=== PATIENT | male | born 1990 | race Caucasian/White ===

== ENCOUNTER 2023-11-16 12:48 | Emergency (ER) | payer MEDICARE, MEDICAID, SELFPAY ==
[2023-11-16 12:54] VITALS: BP 137/87; PULSE 110; O2SAT 96
--- NOTE | 2023-11-16 12:54 | ED_ITS ---
HPI - General Adult General Chief complaint: Upper Respiratory Symptoms Stated complaint: WEAKNESS COVID + Time Seen by Provider: 11/16/23 12:53 Source: patient, family (patient's mother) and EMS Mode of arrival: EMS Limitations: no limitations History of Present Illness ED Provider: Sharon Flores PA-C HPI narrative: Patient is a 33 year old assigned male at with a history of cerebral palsy with quadriplegia, mild intellectual disability, and neuromuscular scoliosis of the thoracic region, presenting to the emergency department today with COVID-19 and poor oral intake. Patient's mother states that the patient has been feeling generally unwell the last few days and has markedly decreased PO intake. Patient's mother states that she tested him for COVID-19 at home and he was positive. Patient's mother states that she is also concerned that his urine is darker than usual. Patient denies any dizziness, lightheadedness, abdominal pain, nausea, vomiting, fever, chills, blurry vision, double vision, loss of vision, chest pain, difficulty breathing, shortness of breath, back pain, night sweats, syncope or a near syncopal episode, recent trauma or falls, bowel incontinence, bladder incontinence, or any other complaints at this time. Onset (ago): day(s) Relieving factors: none Exacerbating factors: none Treatments prior to arrival: none Related Data Allergies Allergy/AdvReac Type Severity Reaction Status Date / Time No Known Allergies Allergy Verified 11/16/23 12:59 [No Known Allergies*] Review of Systems 2 Constitutional: Constitutional: Reports no additional constitutional complaints, Denies chills, Denies fever(s), Denies night sweats and Reports poor appetite Eyes: Eyes: Reports no additional eye complaints, Denies blurry vision, Denies change in vision, Denies diplopia, Denies eye discharge, Denies loss of vision and Denies eye pain ENT: Denies dizziness Cardiovascular: Cardiovascular: Reports no additional cardiovascular complaints, Denies chest pain, Denies lightheadedness, Denies Loss of Consciousness and Denies dyspnea Respiratory: Respiratory: Reports no additional respiratory complaints and Denies dyspnea Gastrointestinal: Gastrointestinal: Reports no additional gastrointestinal complaints, Denies abdominal pain, Denies melena, Denies hematochezia, Denies change in bowel habits and Denies change in stool character Genitourinary: Genitourinary: Reports no additional male genitourinary complaints, Denies hematuria, Denies oliguria, Denies difficulty urinating, Denies dysuria, Denies urinary frequency, Denies urinary hesitancy, Denies urinary incontinence and Denies urinary urgency Musculoskeletal: Comments: history of quadriplegia Neurologic: Denies dizziness and Denies loss of vision Psychiatric: Psychiatric: Reports no additional psychiatric complaints Endocrine: Endocrine: Reports no additional endocrine complaints Hematologic/Lymphatic: Hematologic/Lymphatic: Reports no additional hematologic/lymphatic complaints Allergic/Immunologic: Allergic/Immunologic: Reports no additional allergic/immunologic complaints PMFSH Past Medical History Attestation statement: The following information was validated with the patient. (all information validated with the patient's mother) Source: old records reviewed, obtained from family (patient's mother provided additional history and confirmed the history provided by the patient) and nursing notes reviewed Social History Social History Advance Directives: No Advance Directives Information Provided: Yes Do you have a plan to hurt others: No Plan Physical Exam ED Vital Signs: Vital Signs - 24 hr 11/16/23 20:09 Temperature 98.7 F Pulse Rate 104 H Respiratory Rate 16 Blood Pressure 137/89 Pulse Oximetry 97 Oxygen Delivery Method Room Air BMI result Body Mass Index 23.2 Const General: cooperative, no acute distress, alert and awake Nutritional Appearance: well nourished Orientation/consciousness: patient oriented x3 Limitations: no limitations HENMT Head: Yes normal to inspection and Yes atraumatic Ears: hearing grossly normal bilaterally and external ears normal General nose exam: Normal external nose present, no nasal discharge noted and no epistaxis Face and sinus: Yes normal facial exam, No abrasion and No laceration Mouth: Normal oral and palatal mucosa present, no drooling and no muffled voice Eyes General: appearance normal, both eyes and all related structures Periorbital: periorbital findings normal Eyelids: Yes eyelids normal Conjunctivae: conjunctivae normal Pupils: Equal, round and reactive pupils present EOM: EOMs intact bilaterally Neck Neck: Yes normal visual inspection, Yes full ROM and Yes no lymphadenopathy Chest Chest palpation & inspection: normal inspection of the chest Resp Effort & Inspection: normal respiratory effort and able to speak in complete sentences GI Inspection: Yes normal to inspection Neuro General: patient oriented x3 Cranial nerves: Yes Equal, round and reactive pupils present Cognition (Neuro): normal cognition Extrem Other: upper extremity contractures - chronic for the patient quadriplegia - chronic for the patient Psych Appearance: grossly normal Mental Status: mental status grossly normal Affect: normal affect Attitude: cooperative Thought process: Normal thought process present Thought content: Normal thought content present Insight: Good insight present (Psych) Medications Administered Discontinued Medications Generic Name Dose Route Start Last Admin Trade Name Lesia PRN Reason Stop Dose Admin Sodium Chloride 1,000 mls @ 999 mls/hr 11/16/23 13:00 11/16/23 15:35 Ns IV 11/16/23 14:00 Infused .Q1H1M KEDAR Infusion Acetaminophen 1,000 mg in 100 mls @ 400 mls/hr 11/16/23 15:26 11/16/23 15:59 Ofirmev IV 11/16/23 15:40 Infused ONCE ONE Infusion Lactated Ringer's 1,000 mls @ 999 mls/hr 11/16/23 15:30 11/16/23 17:15 Lr IV 11/16/23 16:30 Infused .Q1H1M KEDAR Infusion Medical Decision Making Medical Decision Making MDM Narrative: Patient is a 33 year old assigned male at with a history of cerebral palsy with quadriplegia, mild intellectual disability, and neuromuscular scoliosis of the thoracic region, presenting to the emergency department today with COVID-19 and feeling generally unwell. Patient's physical exam was as noted in the physical exam portion of this note. Patient's blood work was unremarkable. I explained my physical exam findings as well as all test results to the patient and the patient's mother. I answered all questions asked by the patient and the patient's mother. Patient received IV fluids and Tylenol which he stated helped his symptoms significantly. Patient was able to tolerate PO while in the department. I stressed the importance of the patient taking his medication as directed (either prescribed or as the over the counter packaging recommends). I stressed the importance of the patient following up with his primary care provider. I stressed the importance of the patient returning to the emergency department immediately if his symptoms were to worsen or if he were to develop any dizziness, shortness of breath, difficulty breathing, chest pain, blurry vision, loss of vision, nausea, vomiting, abdominal pain, fever, chills, back pain, or any other complaints. Patient and the patient's mother verbalized agreement and understanding with this treatment plan and discharge. Differential Diagnosis Differential Diagnoses: The differential diagnosis associated with the presentation includes COVID-19 Admission/Observation Consideration of admission/observation: Escalation of care including admission/observation considered Patient would have been admitted to the hospital had his work up had any findings where hospital admission was appropriate and his clinical presentation warranted hospital admission. Lab Data [facility] Lab Attestation statement: I reviewed the patient's lab results. My interpretation of these results are in the [facility] Rationale portion of this note. 11/16/23 13:51 11/16/23 14:52 Labs: Lab Results 11/16/23 11/16/23 11/16/23 Range/Units 13:51 13:59 14:52 WBC 5.9 (4.8-10.8) X10*3/uL RBC 5.41 (4.60-5.80) X10*6/uL Hgb 16.0 (14.0-18.0) g/dl Hct 46.2 (42.0-52.0) % MCV 85.4 (80.0-98.0) fL MCH 29.6 (27.0-33.0) pg MCHC 34.6 (31.0-36.0) g/dl RDW 13.0 (11.0-16.0) % Plt Count 198 (160-400) X10*3/uL MPV 10.9 (9.4-12.4) fL Immature Gran % (Auto) 0.3 (0.0-0.4) % Neut % (Auto) 57.3 (45-73) % Lymph % (Auto) 16.0 L (20-40) % Bent % (Auto) 25.7 H (2-11) % Eos % (Auto) 0.0 (0-4) % Baso % (Auto) 0.7 (0-2) % Lymph # (Auto) 1.0 L (1.2-4.9) X10*3/uL Bent # (Auto) 1.5 H (0.1-1.2) X10*3/uL Eos # (Auto) 0.0 (0.0-0.4) X10*3/uL Baso # (Auto) 0.0 (0.0-0.2) X10*3/uL Abs Immat Gran (auto) 0.02 (0.00-0.03) X10*3/uL Absolute Neuts (auto) 3.4 (2.0-8.3) x10*3/uL Absolute Nucleated RBC 0.000 (0.0-0.012) X10*3/uL Nucleated RBC % (auto) 0.0 (0.0-0.2) /100WBC Smear Tech's Comments VERIFIED Sodium 142 (135-145) mmol/L Potassium 3.7 (3.3-5.1) mmol/L Chloride 107 (96-108) mmol/L Carbon Dioxide 24 (22-29) mmol/L Anion Gap 15 (12-20) BUN 15 (9-16) mg/dL Creatinine 0.67 (0.5-1.4) mg/dL Estim Creat Clear Calc 131.3 Estimated GFR > 60 Random Glucose 85 (60-115) mg/dL Calcium 9.1 (8.4-10.2) mg/dL Magnesium 2.1 (1.6-2.6) mg/dL Total Bilirubin 0.4 (0.0-1.0) mg/dL AST 20 (5-37) U/L ALT 18 (0-40) U/L Alkaline Phosphatase 87 (39-117) U/L Total Creatine Kinase 221 H (38-174) U/L Total Protein 7.3 (6.5-8.0) g/dL Albumin 4.1 (3.5-5.0) g/dL Influenza Type A (PCR) NEGATIVE (Negative) Influenza Type B (PCR) NEGATIVE (Negative) RSV RNA Qual (PCR) NEGATIVE (Negative) SARS-CoV-2 RNA (RT-PCR) POSITIVE A (Negative) Independent Historian Clinical information obtained from an independent historian. History obtained from or confirmed by: Parent (patient's mother provided additional history and confirmed the history provided by the patient.) and EMS (EMS provided additional history and confirmed the history provided by the patient) Tests considered The following testing was considered but not selected: I considered obtaining a chest x-ray however, the patient's current clinical presentation did not warrant this. I discussed this with the patient and the patient's mother who verbalized understanding and agreement. Discharge Plan Discharge Clinical Impression: COVID-19 Patient Disposition: Home, Self-Care Instructions: COVID-19 (Coronavirus Disease 2019) (ED) Additional Instructions: Follow up with your primary care provider. Return to the emergency department immediately if your symptoms worsen or if you develop any dizziness, shortness of breath, difficulty breathing, chest pain, blurry vision, loss of vision, nausea, vomiting, abdominal pain, fever, chills, back pain, or any other complaints. Referrals: Rebecca Magaña MD [Primary Care Provider] - Interventions: ED Discharge Assessment Last Done: 11/16/23 20:09 Discharge Date/Time: 11/16/23 20:10 Print Language: Arabic
[2023-11-16 12:58] VITALS: BP 137/87; PULSE 110; RESP 22; TEMP -17.7; TEMP 0; O2SAT 96; BMI 23.2
[2023-11-16] MEDS: 0.9 % Sodium Chloride 1,000 ML 999 ML IV (13:56)
[2023-11-16 13:57] LABS: Basophils Percent Auto 0.7 % (0-2); Hematocrit 46.2 % (42.0-52.0); Imm Gran Abs Auto 0.02 X10*3/uL (0.00-0.03); Imm Gran Pct Auto 0.3 % (0.0-0.4); MANUAL DIFF FLAG SCAN; Mean Corpuscular HGB Conc 34.6 g/dl (31.0-36.0); Mean Corpuscular Hemoglobin 29.6 pg (27.0-33.0); Mean Corpuscular Volume 85.4 fL (80.0-98.0); Mean Platelet Volume 10.9 fL (9.4-12.4); Monocytes Absolute Auto 1.5 X10*3/uL (0.1-1.2); Monocytes Percent Auto 25.7 % (2-11); Neutrophils Absolute Auto 3.4 x10*3/uL (2.0-8.3); Neutrophils Percent Auto 57.3 % (45-73); Platelet Count 198 X10*3/uL (160-400); Red Blood Count 5.41 X10*6/uL (4.60-5.80); SCAN SMEAR FLAG 1; White Blood Count 5.9 X10*3/uL (4.8-10.8)
[2023-11-16 14:17] LABS: SLIDE REVIEW VERIFIED
[2023-11-16 14:41] LABS: Influenza A PCR NEGATIVE (Negative); Influenza B PCR NEGATIVE (Negative); Resp Syncy Virus RNA Qual PCR NEGATIVE (Negative); SARS COV2 PCR INHOUSE POSITIVE (Negative)
[2023-11-16 14:43] VITALS: TEMP 37.9
[2023-11-16 15:18] LABS: Alanine Aminotransferase 18 U/L (0-40); Albumin Level 4.1 g/dL (3.5-5.0); Alkaline Phosphatase 87 U/L (39-117); Anion Gap 15 (12-20); Aspartate Amino Transferase 20 U/L (5-37); Bilirubin Total 0.4 mg/dL (0.0-1.0); Blood Urea Nitrogen 15 mg/dL (9-16); Calcium 9.1 mg/dL (8.4-10.2); Carbon Dioxide 24 mmol/L (22-29); Chloride 107 mmol/L (96-108); Creatinine Clr Calc Pharmacy 131.3; Estimated Glomerular Filt Rate > 60; Glucose Random 85 mg/dL (60-115); Magnesium 2.1 mg/dL (1.6-2.6); Potassium 3.7 mmol/L (3.3-5.1); Sodium 142 mmol/L (135-145); Total Protein 7.3 g/dL (6.5-8.0)
[2023-11-16] MEDS: Acetaminophen 1,000 MG/100 ML PIGGYBACK 400 MG IV (15:35)
[2023-11-16] MEDS: Lactated Ringers 1,000 ML 999 ML IV (15:59)
[2023-11-16 20:09] VITALS: BP 137/89; PULSE 104; RESP 16; TEMP 37.1; O2SAT 97
== END 2023-11-16 20:10 | disposition home or self-care (01) ==
PROVIDERS: Physician Assistant Medical; Emergency Provider Emergency Medicine; PCP Internal Medicine
DX: U07.1 COVID-19 (principal)
CPT/HCPCS: 0241U; 80053; 82550; 83735; 85025; 96360; 96361; 99284; J0131; J7120

== ENCOUNTER 2025-02-18 18:56 | Emergency (ER) | payer MEDICARE, MEDICAID, SELFPAY ==
--- NOTE | ~2025-02-18 | XR_ITS ---
CLINICAL HISTORY: fever PNA? PT WAS CONTRACTED AND SEMI-UPRIGHT. ARTIFACT APPEARED IN FIRST IMAGE, REPEAT TAKEN BUT STILL SAME RESULT Chest X-ray, 1 View COMPARISON: None provided FINDINGS: Left lower lung consolidation. Low lung volumes. No pleural effusion. No pneumothorax. No cardiomegaly. No acute fracture. Scoliosis. IMPRESSION: Lower lung consolidation, which could be due to pneumonia. This document has been electronically signed by: Ramy Alvarez MD on 02/18/2025 21:24:57
[2025-02-18 19:17] VITALS: BP 139/93; BP 157/98; PULSE 106; PULSE 110; RESP 20; TEMP 37.7; O2SAT 96; O2SAT 97; BMI 27.0
[2025-02-18 20:10] LABS: MANUAL DIFF FLAG NO
[2025-02-18 20:14] LABS: Hematocrit 47.1 % (42.0-52.0); Hemoglobin 15.9 g/dl (14.0-18.0); Imm Gran Abs Auto 0.01 X10*3/uL (0.00-0.03); Imm Gran Pct Auto 0.1 % (0.0-0.4); Lymphocytes Absolute Auto 2.4 X10*3/uL (1.2-4.9); Mean Corpuscular HGB Conc 33.8 g/dl (31.0-36.0); Mean Corpuscular Hemoglobin 29.1 pg (27.0-33.0); Mean Corpuscular Volume 86.1 fL (80.0-98.0); NRBC Abs Auto 0.000 X10*3/uL (0.0-0.012); NRBC Pct Auto 0.0 /100WBC (0.0-0.2); Platelet Count 221 X10*3/uL (160-400); Red Blood Count 5.47 X10*6/uL (4.60-5.80); White Blood Count 9.0 X10*3/uL (4.8-10.8)
--- OUTSIDE RECORDS SUMMARY | 2025-02-18 20:14 | XMS_ITS | Encounter Summary ---
Author Organization [facility] Address [address] [place] [phone] Phone Care Team Providers Care Metal Trim Erector Name Role Phone Deven Arroyo MD Primary Care Provider Chandni dukes Encounter Details Date Type Department Care Team (Late st Contact Info) Description 09/05/2013 Conversion Encounter [facility] - [address] [address] Deven Arroyo MD Social History Tobacco Use Types Packs/Day Years Used Date Smoking Tobacco: Never Assessed Sex and Gender Information Value Date Recorded Sex Assigned at Not on file Legal Sex Male 4:46 PM EDT Gender Identity Not on file Sexual Orientation Not on file documented as of this encounter Plan of Treatment Not on file documented as of this encounter Visit Diagnoses Not on filedocumented in this encounter Care Teams Metal Trim Erector Relationship Specialty Start Date End Date Deven Arroyo MD PCP - General 11/03/16 09/14/22 documented as of this encounter
--- OUTSIDE RECORDS SUMMARY | 2025-02-18 20:14 | XMS_ITS | Encounter Summary ---
Author Organization [facility] Address [address] [place] [address] Phone Care Team Providers Care Cloth Laminating Supervisor Name Role Phone Deven Arroyo MD Primary Care Provider Chandni dukes Encounter Details Date Type Department Care Team (Late st Contact Info) Description 08/03/2009 Documentation [facility] [address] [place] [address] Family Medicine, Physician [address] [place], [place] [phone] Social History Tobacco Use Types Packs/Day Years [...] on filedocumented in this encounter Care Teams Cloth Laminating Supervisor Relationship Specialty Start Date End Date Deven Arroyo MD PCP - General 11/03/16 09/14/22 documented as of this encounter
--- OUTSIDE RECORDS SUMMARY | 2025-02-18 20:14 | XMS_ITS | Encounter Summary ---
Author Organization [facility] Address [address] [place] [address] Phone Care Team Providers Care Corrosion Control Specialist Name Role Phone Deven Arroyo MD Primary Care Provider Chandni dukes Encounter Details Date Type Department Care Team (Late st Contact Info) Description 11/09/2016 Conversion Encounter [facility] - [address] [address] Social History Tobacco Use Types Packs/Day Years [...] on filedocumented in this encounter Care Teams Corrosion Control Specialist Relationship Specialty Start Date End Date Deven Arroyo MD PCP - General 11/03/16 09/14/22 documented as of this encounter
--- OUTSIDE RECORDS SUMMARY | 2025-02-18 20:14 | XMS_ITS | Encounter Summary ---
Author Organization [facility] Address [address] [place] [address] Phone Care Team Providers Care Medical Care Administrator Name Role Phone Deven Arroyo MD Primary Care Provider Chandni dukes Encounter Details Date Type Department Care Team (Late st Contact Info) Description 06/05/2010 Documentation [facility] [address] [place] [address] Family Medicine, Physician [address] [place], [place] [phone] Social History Tobacco Use Types Packs/Day Years [...] on filedocumented in this encounter Care Teams Medical Care Administrator Relationship Specialty Start Date End Date Deven Arroyo MD PCP - General 11/03/16 09/14/22 documented as of this encounter
--- OUTSIDE RECORDS SUMMARY | 2025-02-18 20:14 | XMS_ITS | Encounter Summary ---
Author Organization [facility] Address [address] [place] [address] Phone Care Team Providers Care Library Supervisor Name Role Phone Deven Arroyo MD Primary Care Provider Chandni dukes Encounter Details Date Type Department Care Team (Late st Contact Info) Description 07/21/2009 Documentation [facility] [address] [place] [address] Family Medicine, Physician [address] [place], [place] [address] Social History Tobacco Use Types Packs/Day Years [...] on filedocumented in this encounter Care Teams Library Supervisor Relationship Specialty Start Date End Date Deven Arroyo MD PCP - General 11/03/16 09/14/22 documented as of this encounter
--- OUTSIDE RECORDS SUMMARY | 2025-02-18 20:14 | XMS_ITS | Clinical Summary ---
Author Organization [facility] Address [address] [place] [phone] Phone Care Team Providers Care Auto Mechanics Teacher Name Role Phone Unavailable Primary Care Provider Unavailabl e Immunizations Immunization Administration Dates Next Due DT 11/29/1995, 3,06/16/1991,04/17 DTP 1990 H1N1 07/30/2009 Hep B, ped/adol 01/10/2005,11/25/2003,09/24/2003 Hib (PRP-T) 10/06/1992,07/27/1992 IPV 11/29/1995,01/28/1993,11/11/1991 Influenza Split 12/25/2011,11/17/2010,12/27/2009 Influenza, injectable, trivalent 009,01/03/2008,12/13/2006,02/02,01/10/2005 MMR 11/29/1995,12/15/1991 Meningococcal Conj (Menactra) MCV4P 09/11/2006 OPV 1990 Td (adult) (MBL), 2 Lf tetan us toxoid, PF, adsorbed 04/01/2002 Tdap 10/08/2007 Varicella 10/08/2007,07/16/2000 Family History Relation Name Status Comments Father Father: Hyperte nsion, Elevated cholesterol Other Family history of Asthma, Family history of Diabetes mellitus, Family history of Obesity, Family history of Strabismus/amblyopia Social History Tobacco Use Types Packs/Day Years Used Date Smoking Tobacco: Never Assessed Sex and Gender Information Value Date Recorded Sex Assigned at Not on file Legal Sex Male 4:46 PM EDT Gender Identity Not on file Sexual Orientation Not on file Last Filed Vital Signs Vital Sign Reading Time Taken Comments Blood Pressure 120/90 08/08/2012 12:00 AM EDT Pulse 90 03/04/2010 12:00 AM EST Temperature 36.4 C (97.6 F) 08/08/2012 12:00 AM EDT Respiratory Rate - - Oxygen Saturation - - Inhaled Oxygen Concentration - - Weight 59 kg (130 lb) 08/08/2012 12:00 AM EDT Height - - Body Mass Index - - Plan of Treatment Health Maintenance Due Date Last Done Comments HPV Vaccines (1 - 3-dose SCDM series) 2017 DTaP,Tdap,and Td Vaccines (4 - Td or Tdap) 10/07/2017 10/08/2007, 04/01/2002, 11/29/1995, Additional history exists Influenza Vaccines (#1) 2024 12/25/19, 11/17/2010, 12/27/2009, Additional history exists COVID-19 Vaccine (2024- season) 2024 HIB Vaccines Completed 10/06/1992, 07/27/1992 IPV Vaccines Completed 11/29/1995, 07/1992, 11/11/1991, Additional history exists MMR Vaccines Completed 11/29/1995, 12/15/1991 Hepatitis B Vaccines Completed 01/10/2005, 11/25/2003, 09/24/2003 Meningococcal Vaccine Completed 09/11/2006 Varicella Vaccines Completed 10/08/2007, 07/16/2000 Hepatitis A Vaccines Aged Out No long er eligible based on patient's age to complete this topic Men B Vaccine Aged Out No longer elig ible based on patient's age to complete this topic Pneumococcal Vaccine Aged Out No long er eligible based on patient's age to complete this topic
--- OUTSIDE RECORDS SUMMARY | 2025-02-18 20:14 | XMS_ITS | Clinical Summary ---
Author Organization [facility] Address [address] [place] [phone] Phone Care Team Providers Care Gas Specialist Name Role Phone Rebecca Magaña MD Primary Care Provide r Social History Tobacco Use Types Packs/Day Years Used Date Smoking Tobacco: Never Assessed Education Answer Date Recorded Are you interested in more education? Not on alondra e 07/21/2022 Are you concerned about learning? Not on file 07/21/2022 No 07/21/2022 No 07/21/2022 Digital Access Answer Date Recorded No 08/18/2022 No 08/18/2022 No 08/18/2022 Reliable internet access at home? Not on file 08/18/2022 Device with a working camera? Not on file Sex and Gender Information Value Date Recorded Sex Assigned at Not on file Legal Sex Male 9:02 PM EDT Gender Identity Not on file Sexual Orientation Not on file Plan of Treatment Health Maintenance Due Date Last Done Comments DEPRESSION SCREENING 2002 SMOKING Hx and SMOKELESS TOBACCO SCREENING 08/10/2003 HEPATITIS C SCREENING 2008 HIV ONE-TIME SCREENING (18-65 YEARS) 2008 Adult Td,Tdap Booster 10/07/2017 10/08/2007, 003 INFLUENZA VACCINE (#1) 2024 7, 12/25/2011, 11/17/2010, Additional history exists COVID-19 VACCINE ( season) 2024 HIB VACCINES Completed 10/06/1992, 07/27/1992 MENINGOCOCCAL VACCINES (ACWY) Completed 09/11/2006 HEPATITIS A VACCINES Aged Out No long er eligible based on patient's age to complete this topic MENINGOCOCCAL VACCINES (B) Aged Out N o longer eligible based on patient's age to complete this topic PNEUMOCOCCAL VACCINES (0-49 years) Aged Out No longer eligible based on patient's age to complete this topic Medical Devices Not on file Insurance [place] [facility] Member Subscriber Plan / Payer (Ef fective 2020-Present) Name:Emigdio Avila Member ID:[id number] Relation to Subscriber:Self Name:Emigdio Avila Subscriber ID:[id number] Payer ID:[id number] Group ID:Not on file Type:Medicare Address: Help/Systems [facility] [id number] [place] [id number] MEDICARE PART A & B [facility] [place] [id number] MEDICARE PART A & B [facility] [place] [id number] MEDICARE PART A & B Care Teams Gas Specialist Relationship Specialty Start Date End Date Rebecca Magaña MD [address] [place] [address] PCP - General Internal Medicine 07/20/20 Additional Source Comments The information contained in this document represents components of the legal health record. It is not the complete legal health record.[facility]
--- OUTSIDE RECORDS SUMMARY | 2025-02-18 20:14 | XMS_ITS | Encounter Summary ---
Author Organization [facility] Address [address] [place] [address] Phone Care Team Providers Care Heat And Frost Insulator Helper Name Role Phone Deven Arroyo MD Primary Care Provider Chandni dukes Encounter Details Date Type Department Care Team (Late st Contact Info) Description 08/11/2010 Documentation [facility] [address] [place] [address] Family Medicine, Physician [address] [place], [place] [phone] Social History Tobacco Use Types Packs/Day Years [...] on filedocumented in this encounter Care Teams Heat And Frost Insulator Helper Relationship Specialty Start Date End Date Deven Arroyo MD PCP - General 11/03/16 09/14/22 documented as of this encounter
[2025-02-18 20:24] LABS: Alanine Aminotransferase 30 U/L (0-40); Albumin Level 4.9 g/dL (3.5-5.0); Alkaline Phosphatase 106 U/L (39-117); Anion Gap 12 (12-20); Aspartate Amino Transferase 22 U/L (5-37); Blood Urea Nitrogen 15 mg/dL (9-16); Calcium 9.7 mg/dL (8.4-10.2); Carbon Dioxide 25 mmol/L (22-29); Chloride 105 mmol/L (96-108); Creatinine Clr Calc Pharmacy 156.9; Estimated Glomerular Filt Rate > 60; Magnesium 2.1 mg/dL (1.6-2.6); Potassium 4.0 mmol/L (3.3-5.1); Sodium 138 mmol/L (135-145); Total Protein 8.0 g/dL (6.5-8.0)
[2025-02-18 20:28] LABS: Resp Syncy Virus RNA Qual PCR NEGATIVE (Negative); SARS COV2 PCR INHOUSE NEGATIVE (Negative)
[2025-02-18] MEDS: Lactated Ringers 1,000 ML 999 ML IV (20:49)
[2025-02-18 21:59] VITALS: BP 127/85; PULSE 96; RESP 16; O2SAT 98
[2025-02-18 22:16] LABS: Appearance Urine Turbid; Glucose Urine UA Negative (Negative); PH 7.5 (5.0-9.0); Specific Gravity - Urine 1.020 (1.005-1.025); UMIC TRIGGER UACC YES
[2025-02-18 22:37] LABS: UACC Culture Trigger YES
--- NOTE | 2025-02-18 23:50 | ED_ITS ---
HPI - General Adult General Chief complaint: General Medical Stated complaint: MUSCLE SPASMS Time Seen by Provider: 02/18/25 20:11 Source: family Limitations: other (Physical and cognitive impairment) History of Present Illness ED Provider: Venus Sharif PA-C HPI narrative: 34-year-old male with a history of cerebral palsy with quadriplegia, mild intellectual disability, and neuromuscular scoliosis of the thoracic region, who presents with poor oral intake. Patient is here with the his mom, he has not been eating. She is worried he may be sick. No active nausea vomiting or diarrhea. The patient has no physical concerns or complaints at this time. He refused to take his medication today. Related Data Previous Rx's ?Medication ?Instructions ?Recorded amoxicillin 875 mg-potassium 1 tab PO Q12H #19 tabs clavulanate 125 mg tablet azithromycin 250 mg tablet 250 mg PO DAILY 4 days #4 t abs 02/19/25 Allergies Allergy/AdvReac Type Severity Reaction Status Date / Time No Known Allergies (No Known Allergy Verified 02/18/25 19:23 Allergies*) Review of Systems 2 Review of Systems: Yes all other systems are reviewed and are negative Constitutional: Constitutional: Denies fatigue, Denies fever(s) and Reports poor appetite Cardiovascular: Cardiovascular: Denies chest pain and Denies dyspnea Respiratory: Respiratory: Denies cough and Denies dyspnea Gastrointestinal: Gastrointestinal: Denies abdominal pain, Denies constipation, Denies diarrhea, Denies nausea and Denies vomiting Genitourinary: Genitourinary: Denies dysuria Endocrine: Endocrine: Denies fatigue [facility] Past Medical History Attestation statement: The following information was validated with the patient. Social History Social History Alcohol intake: never Physical Exam ED Vital Signs: Vital Signs - 24 hr 02/18/25 19:17 02/18/25 21:59 02/19/25 01:04 Temperature 99.9 F Pulse Rate 106 H 96 105 H Respiratory Rate 20 16 15 Blood Pressure 139/93 H 127/85 124/87 Pulse Oximetry 96 98 95 Oxygen Delivery Method Room Air Room Air Room Air 02/19/25 01:11 Temperature 97.9 F Pulse Rate 105 H Respiratory Rate 15 Blood Pressure 124/87 Pulse Oximetry 95 Oxygen Delivery Method Room Air BMI result Body Mass Index 27.0 Const Other: Alert Orientation/consciousness: oriented to person Resp Effort & Inspection: normal respiratory effort Cardio Other: Normal peripheral perfusion Skin Other: Warm dry no rash Neuro Other: Contracted at baseline General: oriented to person and CN's II-XI intact bilaterally Psych Other: Cooperative Medications Administered Discontinued Medications Generic Name Dose Route Start Last Admin Trade Name Lesia PRN Reason Stop Dose Admin Lactated Ringer's 1,000 mls @ 999 mls/hr 02/18/25 20:15 02/18/25 21:50 Lr IV 02/18/25 21:15 Infused .Q1H1M KEDAR Infusion Ceftriaxone Sodium 2 gm/ 50 mls @ 100 mls/hr 02/18/25 22:14 02/18/25 22:52 Sodium Chloride IV 02/18/25 22:43 Infused ONCE ONE Infusion Azithromycin 500 mg/ Sodium 250 mls @ 125 mls/hr 02/18/25 22:14 02/19/25 01:03 Chloride IV 02/19/25 00:13 Infused ONCE ONE Infusion Ondansetron HCl 4 mg 02/19/25 00:19 02/19/25 00:36 Ondansetron Hcl 4 Mg/2 Ml Vial IVPUSH 02/19/25 00:20 4 mg ONCE ONE Administration Medical Decision Making Medical Decision Making [facility] Narrative: 34-year-old male with a history of cerebral palsy with quadriplegia, mild intellectual disability, and neuromuscular scoliosis of the thoracic region, who presents with poor oral intake. Patient is here with the his mom, he has not been eating. She is worried he may be sick. No active nausea vomiting or diarrhea. The patient has no physical concerns or complaints at this time. He refused to take his medication today. Problem: Bed-bound, CP, intellectual disability History: Per patient's mom I have considered the following differential diagnoses: Sepsis, UTI, pneumonia, viral syndrome, acute intra-abdominal pathology Plan: Patient not having any active GI symptoms, I do not feel he needs a CT scan of the abdomen and pelvis. Rectal temp was checked, he is afebrile, 99.9. We will collect blood cultures and a lactic, he may be developing a fever. Screening labs in process, adding on a chest x-ray viral panel and urinalysis. His symptoms are very nonspecific at this time. He does not meet sepsis criteria I want to be clear about this. I have independently reviewed the following tests: Labs: No leukocytosis, not anemic, no electrolyte abnormality, lactic 1.6, urine infected, viral panel negative Chest x-ray: FINDINGS: Left lower lung consolidation. Low lung volumes. No pleural effusion. No pneumothorax. No cardiomegaly. No acute fracture. Scoliosis. IMPRESSION: Lower lung consolidation, which could be due to pneumonia. Treating with ceftriaxone and azithromycin IV. We will transition to Augmentin and azithromycin at the time of discharge, this will also cover his urinary tract infection Differential Diagnosis Differential Diagnoses: The differential diagnosis associated with the presentation includes See [facility] Admission/Observation Consideration of admission/observation: Escalation of care including admission/observation considered Not applicable Lab Data [facility] Lab Attestation statement: I reviewed the patient's lab results. 02/18/25 20:06 02/18/25 20:06 Labs: Lab Results 02/18/25 02/18/25 02/18/25 Range/Units 19:44 20:06 20:54 WBC 9.0 (4.8-10.8) X10*3/uL RBC 5.47 (4.60-5.80) X10*6/uL Hgb 15.9 (14.0-18.0) g/dl Hct 47.1 (42.0-52.0) % MCV 86.1 (80.0-98.0) fL MCH 29.1 (27.0-33.0) pg MCHC 33.8 (31.0-36.0) g/dl RDW 13.2 (11.0-16.0) % Plt Count 221 (160-400) X10*3/uL MPV 10.7 (9.4-12.4) fL Immature Gran % (Auto) 0.1 (0.0-0.4) % Neut % (Auto) 60.7 (45-73) % Lymph % (Auto) 26.5 (20-40) % [place] % (Auto) 8.4 (2-11) % Eos % (Auto) 3.3 (0-4) % Baso % (Auto) 1.0 (0-2) % Lymph # (Auto) 2.4 (1.2-4.9) X10*3/uL [place] # (Auto) 0.8 (0.1-1.2) X10*3/uL Eos # (Auto) 0.3 (0.0-0.4) X10*3/uL Baso # (Auto) 0.1 (0.0-0.2) X10*3/uL Abs Immat Gran (auto) 0.01 (0.00-0.03) X10*3/uL Absolute Neuts (auto) 5.4 (2.0-8.3) x10*3/uL Absolute Nucleated RBC 0.000 (0.0-0.012) X10*3/uL Nucleated RBC % (auto) 0.0 (0.0-0.2) /100WBC Sodium 138 (135-145) mmol/L Potassium 4.0 (3.3-5.1) mmol/L Chloride 105 (96-108) mmol/L Carbon Dioxide 25 (22-29) mmol/L Anion Gap 12 (12-20) BUN 15 (9-16) mg/dL Creatinine 0.58 (0.5-1.4) mg/dL Estim Creat Clear Calc 156.9 Estimated GFR > 60 Random Glucose 97 (60-115) mg/dL Lactic Acid 1.6 (0.5-2.0) mmol/L Calcium 9.7 D (8.4-10.2) mg/dL Magnesium 2.1 (1.6-2.6) mg/dL Total Bilirubin 0.4 (0.0-1.0) mg/dL Direct Bilirubin 0.2 (0.0-0.5) mg/dL AST 22 (5-37) U/L ALT 30 (0-40) U/L Alkaline Phosphatase 106 (39-117) U/L Total Creatine Kinase 79 (38-174) U/L Total Protein 8.0 (6.5-8.0) g/dL Albumin 4.9 (3.5-5.0) g/dL Urine Color Urine Appearance Urine pH (5.0-9.0) Ur Specific [place] (1.005-1.025) Urine Protein (Neg-Trace) mg/dL Urine Glucose (UA) (Negative) mg/dL Urine Ketones (Negative) mg/dL Urine Blood (Negative) Urine Nitrite (Negative) Ur Leukocyte Esterase (Negative) Urine RBC (0-2) /HPF Urine WBC (0-5) /HPF Ur Squamous Epith Cells (0-2) /HPF Urine Bacteria (None Seen) Hyaline Casts (0-2) /LPF Influenza Type A (PCR) NEGATIVE (Negative) Influenza Type B (PCR) NEGATIVE (Negative) RSV RNA Qual (PCR) NEGATIVE (Negative) SARS-CoV-2 RNA (RT-PCR) NEGATIVE (Negative) 02/18/25 Range/Units 22:03 WBC (4.8-10.8) X10*3/uL RBC (4.60-5.80) X10*6/uL Hgb (14.0-18.0) g/dl Hct (42.0-52.0) % MCV (80.0-98.0) fL MCH (27.0-33.0) pg MCHC (31.0-36.0) g/dl RDW (11.0-16.0) % Plt Count (160-400) X10*3/uL MPV (9.4-12.4) fL Immature Gran % (Auto) (0.0-0.4) % Neut % (Auto) (45-73) % Lymph % (Auto) (20-40) % [place] % (Auto) (2-11) % Eos % (Auto) (0-4) % Baso % (Auto) (0-2) % Lymph # (Auto) (1.2-4.9) X10*3/uL [place] # (Auto) (0.1-1.2) X10*3/uL Eos # (Auto) (0.0-0.4) X10*3/uL Baso # (Auto) (0.0-0.2) X10*3/uL Abs Immat Gran (auto) (0.00-0.03) X10*3/uL Absolute Neuts (auto) (2.0-8.3) x10*3/uL Absolute Nucleated RBC (0.0-0.012) X10*3/uL Nucleated RBC % (auto) (0.0-0.2) /100WBC Sodium (135-145) mmol/L Potassium (3.3-5.1) mmol/L Chloride (96-108) mmol/L Carbon Dioxide (22-29) mmol/L Anion Gap (12-20) BUN (9-16) mg/dL Creatinine (0.5-1.4) mg/dL Estim Creat Clear Calc Estimated GFR Random Glucose (60-115) mg/dL Lactic Acid (0.5-2.0) mmol/L Calcium (8.4-10.2) mg/dL Magnesium (1.6-2.6) mg/dL Total Bilirubin (0.0-1.0) mg/dL Direct Bilirubin (0.0-0.5) mg/dL AST (5-37) U/L ALT (0-40) U/L Alkaline Phosphatase (39-117) U/L Total Creatine Kinase (38-174) U/L Total Protein (6.5-8.0) g/dL Albumin (3.5-5.0) g/dL Urine Color Yellow Urine Appearance Turbid Urine pH 7.5 (5.0-9.0) Ur Specific [place] 1.020 (1.005-1.025) Urine Protein Trace (Neg-Trace) mg/dL Urine Glucose (UA) Negative (Negative) mg/dL Urine Ketones 15 (Negative) mg/dL Urine Blood Negative (Negative) Urine Nitrite Positive H (Negative) Ur Leukocyte Esterase Moderate (2+) H (Negative) Urine RBC 0-2 (0-2) /HPF Urine WBC >50 H (0-5) /HPF Ur Squamous Epith Cells 0-2 (0-2) /HPF Urine Bacteria 4+ (None Seen) Hyaline Casts 3-5 (0-2) /LPF Influenza Type A (PCR) (Negative) Influenza Type B (PCR) (Negative) RSV RNA Qual (PCR) (Negative) SARS-CoV-2 RNA (RT-PCR) (Negative) Radiology Impression Discussion of test interpretation with radiology: I have reviewed the radiologist's reading. Discharge Plan Discharge Clinical Impression: Pneumonia Qualifiers: Pneumonia type: due to unspecified organism Laterality: left Lung location: l ower lobe of lung Qualified Code(s): J18.9 - Pneumonia, unspecified organism Urinary tract infection Qualifiers: Urinary tract infection type: acute cystitis Hematuria presence: without hematuria Qualified Code(s): N30.00 - Acute cystitis without hematuria Patient Disposition: Home, Self-Care Instructions: Urinary Tract Infection in Men (ED), Community Acquired Pneumonia (ED) Additional Instructions: You were found to have pneumonia and a urinary tract infection. See home care instructions. Take the Augmentin as directed, this will treat the pneumonia and the urinary tract infection. Take the azithromycin as directed this is part of the treatment for pneumonia. You should follow up with your primary care provider within a week for a reassessment. Prescriptions: New azithromycin 250 mg tablet 250 mg PO DAILY 4 Days Qty: 4 0RF Rx Instructions: start on day 2 of therapy amoxicillin-pot clavulanate 875-125 mg tablet 1 tab PO Q12H Qty: 19 0RF Interventions: ED Discharge Assessment Last Done: 02/19/25 01:11 Discharge Date/Time: 02/19/25 01:15 Print Language: Welsh
[2025-02-19 01:04] VITALS: BP 124/87; PULSE 105; RESP 15; O2SAT 95
--- NOTE | 2025-02-19 01:04 | PC.NURSE ---
Pt tolerated PO apple juice. Mother at bedside.
[2025-02-19 01:11] VITALS: BP 124/87; PULSE 105; RESP 15; TEMP 36.6; O2SAT 95
== END 2025-02-19 01:15 | disposition home or self-care (01) ==
PROVIDERS: Physician Assistant; Physician Assistant Medical; Emergency Provider Student in an Organized Health Care Education/Training Program; PCP Internal Medicine
DX: J18.9 Pneumonia, unspecified organism (principal); N30.00 Acute cystitis without hematuria; G80.8 Other cerebral palsy; M41.44 Neuromuscular scoliosis, thoracic region
CPT/HCPCS: 36415; 71045; 80048; 80076; 81001; 82550; 83605; 83735; 85025; 87040; 87086; 87147; 87205; 87637; J0456; J0696; J2405; J7120

== ENCOUNTER → 2025-02-18 20:15 | Outpatient (BNV) | payer MEDICARE, MEDICAID, SELFPAY | PROVIDERS: Emergency Provider Student in an Organized Health Care Education/Training Program; PCP Internal Medicine; Visit Provider Radiology Diagnostic Radiology | DX: R91.8 Other nonspecific abnormal finding of lung field (principal) | CPT/HCPCS: 71045 ==

== ENCOUNTER 2025-02-19 18:17 | Inpatient (IN) | payer MEDICARE, MEDICAID, SELFPAY ==
--- NOTE | ~2025-02-19 | CT_ITS ---
CLINICAL HISTORY: PT with Cereb Palsy refusing food CT abdomen and pelvis with contrast Comparison: None provided Findings: LIMITED CHEST: See separate CT chest. LIVER: No focal liver lesion. BILIARY: No gallbladder wall thickening, radiopaque stone, or ductal dilatation. PANCREAS: No mass or ductal dilatation. Questionable peripancreatic strandy changes around the head. SPLEEN: No splenomegaly. KIDNEYS: No hydronephrosis or radiopaque stone. Small hypoattenuating lesions, too small to characterize however may represent cysts. ADRENALS: No nodule. VASCULAR: No aneurysm. RETROPERITONEUM: No lymphadenopathy or mass. BOWEL/MESENTERY: No evidence of obstruction. No free fluid or air. Large stool in the rectal vault. Normal appendix. ABDOMINAL WALL: No mass or significant abnormality. URINARY BLADDER: No focal wall thickening. PELVIC NODES: No pelvic lymphadenopathy. PELVIC ORGANS: Normal for age. BONES: No acute fracture. Thoracolumbar scoliosis. OTHER: Negative. IMPRESSION: Questionable strandy changes around the pancreatic head, correlate with lipase. Otherwise, no acute abnormality in the abdomen or pelvis. Normal appendix. Large amount of stool in the rectal vault. This document has been electronically signed by: Lety Kumar MD on 02/20/2025 00:10:03
--- NOTE | ~2025-02-19 | CT_ITS ---
CLINICAL HISTORY: shortness of breath CT angiography chest with contrast. 3D Postprocessing. Comparison: None provided Findings: NECK BASE: Limited views of the thyroid are unremarkable. LUNGS/PLEURA: No focal consolidation. PULM VASCULAR: No pulmonary embolism. MEDIASTINUM: No masses or lymphadenopathy. CARDIAC: No pericardial effusion. No cardiomegaly. AORTA: No aneurysm. CHEST WALL: No masses or axillary lymphadenopathy. LIMITED ABDOMEN: Limited views are unremarkable. BONES: No acute fracture. Thoracolumbar scoliosis. IMPRESSION: 1. No pulmonary emboli. This document has been electronically signed by: Lety Kumar MD on 02/19/2025 23:51:34
--- NOTE | ~2025-02-19 | XR_ITS ---
CLINICAL HISTORY: Question of pneumonia 1 view chest x-ray Comparison: CR - XR CHEST 1V - 02/18/25 20:23 EST Findings: No consolidation or effusion. Low lung volume. Heart size is normal. No acute fracture. IMPRESSION: 1. Low lung volume, otherwise unremarkable. This document has been electronically signed by: Colleen Martin MD on 02/19/2025 19:41:46
[2025-02-19 18:28] VITALS: BP 161/90; PULSE 91; O2SAT 96
--- NOTE | 2025-02-19 18:29 | ED_ITS ---
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 He lives with his mother who functions as his pattern chain builder. The patient was brought to the hospital yesterday evening on February 18 at around 19:00. He has been brought here by his mother by ambulance because the patient seemed to be in pain and had not been eating or drinking or taking his regular medications all day. Unfortunately the patient is very poor at localizing his pain and it was hard to determine in what way the patient was uncomfortable. The patient has a rectal temperature of 99.9 degrees yesterday. He has a white blood count of 9.0 with a normal differential. He has a normal basic metabolic panel, normal LFTs, and a normal lactate. He had a urinalysis yesterday that showed positive nitrites, 2+ leukocyte esterase and greater than 50 white cells and 4+ bacteria. He had a one view portable chest x-ray that suggested a possible left lower lobe infiltrate. Blood cultures and a urine culture were sent. He was given ceftriaxone and azithromycin. He was discharged with prescriptions for Augmentin and azithromycin. He was discharged from the emergency room early this morning at 01:11. The mother says that the patient has continued to seem unwell today despite the antibiotics yesterday. He has been unwilling to take any of his regular medications including his baclofen and he also did not take any oral antibiotics at home today. The patient's mother thinks that the patient is having pain in the neck. When I spoke to the patient he told me that he was having pain in his left foot. It is therefore difficult to determine exactly in what way he might be ill. Related Data Previous Rx's ?Medication ?Instructions ?Recorded amoxicillin 875 mg-potassium 1 tab PO Q12H #19 tabs clavulanate 125 mg tablet azithromycin 250 mg tablet 250 mg PO DAILY 4 days #4 t abs 02/19/25 Allergies Allergy/AdvReac Type Severity Reaction Status Date / Time No Known Allergies (No Known Allergy Verified 02/19/25 18:37 Allergies*) Review of Systems 2 Review of Systems: Yes all other systems are reviewed and are negative [facility] Social History Social History Alcohol intake: never Smoked in Last 30 Days: No Advance Directives: No Advance Directives Information Provided: No Do you have a plan to hurt others: No Plan Physical Exam ED Vital Signs: Vital Signs - 24 hr 02/19/25 18:53 02/19/25 20:00 02/19/25 20:36 Temperature 97.9 F 97.9 F Pulse Rate 85 85 Blood Pressure 126/90 H 126/90 H Pulse Oximetry 98 98 99 Oxygen Delivery Method Room Air Room Air Room Air BMI result Body Mass Index 30.9 Const Other: The patient is a chronically ill 34-year-old male who appears bed-bound with chronic wasting and contractures of extremities. He did not strike me as being obviously in pain or having any respiratory difficulty. He did not strike me has been obviously toxic or acutely ill. He was awake and alert and seemed to try to answer questions but seemed to be a very vague historian. HENMT Other: The face is symmetrical. There is some dysmorphism to the face and the jaw. Mucous membranes are moist. Eyes General: appearance normal, both eyes and all related structures Neck Other: The patient is not move his neck much. I cannot tell if this is baseline. He does not seem to have any significant neck tenderness or swelling. No obvious adenopathy. Resp Effort & Inspection: normal respiratory effort Auscultation: clear to auscultation bilaterally Cardio Rate: regular rate Rhythm: regular rhythm Heart sounds: S1 normal heart sound present and S2 normal heart sound present GI Other: The abdomen seems soft and does not seem obviously tender but the patient does not necessarily seemed to be a reliable vehicle trimmer of symptoms. Skin Other: Skin is pale and dry. No obvious signs of skin breakdown or injury. Neuro Other: The patient is awake and alert. He seems to be a what I suspect is his baseline mental status. No obvious cranial nerve deficit. He has minimal use of his upper extremities. Little or no use of his lower extremities. Extrem Other: The patient has contracted and atrophied extremities. No peripheral edema. Medications Administered Discontinued Medications Generic Name Dose Route Start Last Admin Trade Name Freq PRN Reason Stop Dose Admin Diphenhydramine HCl 12.5 mg 02/20/25 00:46 02/20/25 00:51 Diphenhydramine Hcl 50 Mg/Ml Vial IVPUSH 02/20/25 00:47 12.5 mg ONCE ONE Administration Lactated Ringer's 1,000 mls @ 999 mls/hr 02/19/25 21:30 02/19/25 23:19 Lr IV 02/19/25 22:30 Infused .Q1H1M KEDAR Infusion Ceftriaxone Sodium 2 gm/ 50 mls @ 100 mls/hr 02/19/25 22:59 02/20/25 00:06 Sodium Chloride IV 02/19/25 23:28 Infused ONCE ONE Infusion Vancomycin HCl 2,000 mg in 500 mls @ 250 mls/hr 02/19/25 22:59 02/19/25 23:28 Vancomycin/Ns IV 02/20/25 00:58 250 mls/hr ONCE ONE Administration Iohexol 85 ml 02/19/25 22:58 02/19/25 23:10 Iohexol 350 Mg/Ml 100 Ml Infus..Btl IV 02/19/25 22:59 85 ml ONCE ONE Administration Medical Decision Making Medical Decision Making MDM Narrative: The patient is a 34-year-old with significant chronic disabilities. He is nonambulatory. He has cerebral palsy. He has a intellectual impairment. He lives with his mother who is his primary pattern chain builder. He presents to the emergency room today approximately 24 hours after he presented yesterday. He presented yesterday with a nonspecific complaints of not being himself and not taking oral intake. His workup in the emergency room showed an abnormal urinalysis and a questionable finding of a pneumonia on chest x-ray. The patient did not seem septic. He was given IV ceftriaxone and azithromycin and was discharged with a prescriptions for Augmentin and azithromycin to be taken at home. The patient was brought back to the hospital today because his mother says that he has not taken anything by mouth today. This includes taking none of his regular medications including baclofen and oxycodone. Coincidentally, just as he checked into the emergency department the 2nd time today we received a call from the lab that 1 of his blood cultures was positive for Gram-positive cocci in clusters. The patient's physical exam was complicated by the patient's mental status. He was a very unreliable vehicle trimmer of discomfort or any other symptoms. Clinically there was no obvious explanation for why the patient was behaving differently from his usual behavior and why he was refusing oral intake. Me did not seem obviously septic. Nevertheless, given his blood culture result, given his abnormal urinalysis on his previous emergency room visit, and given that he was not taking any oral intake and given that his mother seemed to think that something was not right I ordered a CT scan of the abdomen and pelvis and also a CT scan of the chest to look for possible sources of illness. Additionally the patient was covered with the antibiotics with ceftriaxone and vancomycin although he did not have an elevated white count, CRP, or lactate. The CT scans of the chest, abdomen, and pelvis are essentially unremarkable from the point of view of explaining the patient's presentation. The patient was given IV fluids as well as antibiotics. He will be admitted to the hospitalist service for further evaluation pending final results of his blood cultures and his urine culture from his previous emergency room visit and to see whether he is able to resume oral intake. Lab Data 02/19/25 20:30 02/19/25 21:07 Labs: Lab Results 02/19/25 02/19/25 02/19/25 Range/Units 19:02 20:30 21:07 WBC 10.0 (4.8-10.8) X10*3/uL RBC 5.59 (4.60-5.80) X10*6/uL Hgb 16.1 (14.0-18.0) g/dl Hct 47.2 (42.0-52.0) % MCV 84.4 (80.0-98.0) fL MCH 28.8 (27.0-33.0) pg MCHC 34.1 (31.0-36.0) g/dl RDW 12.9 (11.0-16.0) % Plt Count 227 (160-400) X10*3/uL MPV 11.1 (9.4-12.4) fL Immature Gran % (Auto) 0.2 (0.0-0.4) % Neut % (Auto) 69.8 (45-73) % Lymph % (Auto) 20.2 (20-40) % [place] % (Auto) 8.1 (2-11) % Eos % (Auto) 1.1 (0-4) % Baso % (Auto) 0.6 (0-2) % Lymph # (Auto) 2.0 (1.2-4.9) X10*3/uL [place] # (Auto) 0.8 (0.1-1.2) X10*3/uL Eos # (Auto) 0.1 (0.0-0.4) X10*3/uL Baso # (Auto) 0.1 (0.0-0.2) X10*3/uL Abs Immat Gran (auto) 0.02 (0.00-0.03) X10*3/uL Absolute Neuts (auto) 7.0 (2.0-8.3) x10*3/uL Absolute Nucleated RBC 0.000 (0.0-0.012) X10*3/uL Nucleated RBC % (auto) 0.0 (0.0-0.2) /100WBC Sodium 140 (135-145) mmol/L Potassium 3.9 (3.3-5.1) mmol/L Chloride 105 (96-108) mmol/L Carbon Dioxide 21 L (22-29) mmol/L Anion Gap 18 (12-20) BUN 8 L (9-16) mg/dL Creatinine 0.53 (0.5-1.4) mg/dL Estim Creat Clear Calc 176.1 Estimated GFR > 60 Random Glucose 90 (60-115) mg/dL Lactic Acid 1.7 (0.5-2.0) mmol/L Calcium 9.8 (8.4-10.2) mg/dL Magnesium 2.0 (1.6-2.6) mg/dL Total Bilirubin 0.7 (0.0-1.0) mg/dL Direct Bilirubin 0.2 (0.0-0.5) mg/dL AST 25 (5-37) U/L ALT 27 (0-40) U/L Alkaline Phosphatase 108 (39-117) U/L C-Reactive Protein 0.27 (< or = 0.50) mg/dL Total Protein 7.9 (6.5-8.0) g/dL Albumin 4.8 (3.5-5.0) g/dL Lipase 36 (8-78) U/L Influenza Type A (PCR) NEGATIVE (Negative) Influenza Type B (PCR) NEGATIVE (Negative) RSV RNA Qual (PCR) NEGATIVE (Negative) SARS-CoV-2 RNA (RT-PCR) NEGATIVE (Negative) Discharge Plan Discharge Clinical Impression: Cerebral palsy, Change in behavior, Positive blood culture Patient Disposition: Admitted As Inpatient
[2025-02-19 18:33] VITALS: BMI 30.9
--- OUTSIDE RECORDS SUMMARY | 2025-02-19 18:48 | XMS_ITS | Encounter Summary ---
Author Organization [facility] Address [address] [place] [address] Phone Care Team Providers Care Medicaid Nurse Name Role Phone Deven Arroyo MD Primary Care Provider Chandni dukes Encounter Details Date Type Department Care Team (Late st Contact Info) Description 06/05/2010 Documentation [facility] [address] [place] [address] Family Medicine, Physician [address] [place], [place] [id number] Social History Tobacco Use Types Packs/Day Years [...] on filedocumented in this encounter Care Teams Medicaid Nurse Relationship Specialty Start Date End Date Deven Arroyo MD PCP - General 11/03/16 09/14/22 documented as of this encounter
--- OUTSIDE RECORDS SUMMARY | 2025-02-19 18:48 | XMS_ITS | Encounter Summary ---
Author Organization [facility] Address [address] [place] [phone] Phone Care Team Providers Care Magnaflux Operator Name Role Phone Deven Arroyo MD Primary Care Provider Chandni dukes Encounter Details Date Type Department Care Team (Late st Contact Info) Description 09/05/2013 Conversion Encounter [facility] - [address] [address] Deven Arroyo MD Social History Tobacco Use [...] on filedocumented in this encounter Care Teams Magnaflux Operator Relationship Specialty Start Date End Date Deven Arroyo MD PCP - General 11/03/16 09/14/22 documented as of this encounter
--- OUTSIDE RECORDS SUMMARY | 2025-02-19 18:48 | XMS_ITS | Encounter Summary ---
Author Organization [facility] Address [address] [place] [phone] Phone Care Team Providers Care Enamel Pulverizer Name Role Phone Deven Arroyo MD Primary Care Provider Chandni dukes Encounter Details Date Type Department Care Team (Late st Contact Info) Description 11/09/2016 Conversion Encounter [facility] - [address] [phone] Social History Tobacco Use Types Packs/Day Years [...] on filedocumented in this encounter Care Teams Enamel Pulverizer Relationship Specialty Start Date End Date Deven Arroyo MD PCP - General 11/03/16 09/14/22 documented as of this encounter
--- OUTSIDE RECORDS SUMMARY | 2025-02-19 18:48 | XMS_ITS | Clinical Summary ---
Author Organization [facility] Address [address] [facility] [address] [place] [id number] Phone Care Team Providers Care Nanotechnology Engineering Technician Name Role Phone Rebecca Magaña MD Primary [...] Insurance [place] [facility] Member Subscriber Plan / Payer (Ef fective 2020-Present) Name:Emigdio Avila Member ID:[id number] Relation to Subscriber:Self Name:Emigdio Avila Subscriber ID:[id number] Payer ID:[id number] Group ID:Not on file Type:Medicare Address: [place] [facility] [address] [place] [phone] MEDICARE PART A & B [facility] [place] [id number] MEDICARE PART A & B [facility] ANGEL MICHEL [phone] MEDICARE PART A & B Care Teams Nanotechnology Engineering Technician Relationship Specialty Start Date End Date Rebecca Magaña MD [address] [place] [address] PCP - General Internal Medicine 07/20/20 Additional Source Comments The information contained in this document represents components of the legal health record. It is not the complete legal health record.[facility]
--- OUTSIDE RECORDS SUMMARY | 2025-02-19 18:48 | XMS_ITS | Clinical Summary ---
Author Organization [facility] Address [address] [place] [id number] Phone Care Team Providers Care Neighborhood Worker Name Role Phone Unavailable Primary Care Provider [...]
--- OUTSIDE RECORDS SUMMARY | 2025-02-19 18:48 | XMS_ITS | Encounter Summary ---
Author Organization [facility] Address [address] [place] [address] Phone Care Team Providers Care Public Employment Mediator Name Role Phone Deven Arroyo MD Primary Care Provider Chandni dukes Encounter Details Date Type Department Care Team (Late st Contact Info) Description 08/11/2010 Documentation [facility] [address] [place] [address] Family Medicine, Physician [address] [place], [place] [id number] Social History Tobacco Use Types Packs/Day Years [...] on filedocumented in this encounter Care Teams Public Employment Mediator Relationship Specialty Start Date End Date Deven Arroyo MD PCP - General 11/03/16 09/14/22 documented as of this encounter
--- OUTSIDE RECORDS SUMMARY | 2025-02-19 18:48 | XMS_ITS | Encounter Summary ---
Author Organization [facility] Address [address] [place] [address] Phone Care Team Providers Care Roll Icer Name Role Phone Deven Arroyo MD Primary Care Provider Chandni dukes Encounter Details Date Type Department Care Team (Late st Contact Info) Description 07/21/2009 Documentation [facility] [address] [place] [address] Family Medicine, Physician [address] [place], [place] [address] Social History Tobacco Use Types Packs/Day Years [...] on filedocumented in this encounter Care Teams Roll Icer Relationship Specialty Start Date End Date Deven Arroyo MD PCP - General 11/03/16 09/14/22 documented as of this encounter
--- OUTSIDE RECORDS SUMMARY | 2025-02-19 18:48 | XMS_ITS | Encounter Summary ---
Author Organization [facility] Address [address] [place] [address] Phone Care Team Providers Care International Bank Manager Name Role Phone Deven Arroyo MD Primary Care Provider Chandni dukes Encounter Details Date Type Department Care Team (Late st Contact Info) Description 08/03/2009 Documentation [facility] [address] [place] [address] Family Medicine, Physician [address] [place], [place] [address] Social History Tobacco Use Types Packs/Day Years [...] on filedocumented in this encounter Care Teams International Bank Manager Relationship Specialty Start Date End Date Deven Arroyo MD PCP - General 11/03/16 09/14/22 documented as of this encounter
[2025-02-19 18:53] VITALS: BP 126/90; PULSE 85; TEMP 36.6; O2SAT 98
[2025-02-19 19:48] LABS: Resp Syncy Virus RNA Qual PCR NEGATIVE (Negative); SARS COV2 PCR INHOUSE NEGATIVE (Negative)
[2025-02-19 20:00] VITALS: BP 126/90; PULSE 85; TEMP 36.6; O2SAT 98
[2025-02-19 20:36] VITALS: O2SAT 99
[2025-02-19 20:37] LABS: MANUAL DIFF FLAG NO
[2025-02-19 20:56] LABS: Hematocrit 47.2 % (42.0-52.0); Hemoglobin 16.1 g/dl (14.0-18.0); Imm Gran Abs Auto 0.02 X10*3/uL (0.00-0.03); Imm Gran Pct Auto 0.2 % (0.0-0.4); Lymphocytes Absolute Auto 2.0 X10*3/uL (1.2-4.9); Mean Corpuscular HGB Conc 34.1 g/dl (31.0-36.0); Mean Corpuscular Hemoglobin 28.8 pg (27.0-33.0); Mean Corpuscular Volume 84.4 fL (80.0-98.0); NRBC Abs Auto 0.000 X10*3/uL (0.0-0.012); NRBC Pct Auto 0.0 /100WBC (0.0-0.2); Platelet Count 227 X10*3/uL (160-400); Red Blood Count 5.59 X10*6/uL (4.60-5.80); White Blood Count 10.0 X10*3/uL (4.8-10.8)
[2025-02-19 21:26] LABS: Alanine Aminotransferase 27 U/L (0-40); Albumin Level 4.8 g/dL (3.5-5.0); Alkaline Phosphatase 108 U/L (39-117); Anion Gap 18 (12-20); Aspartate Amino Transferase 25 U/L (5-37); Blood Urea Nitrogen 8 mg/dL (9-16); Calcium 9.8 mg/dL (8.4-10.2); Carbon Dioxide 21 mmol/L (22-29); Chloride 105 mmol/L (96-108); Creatinine Clr Calc Pharmacy 176.1; Estimated Glomerular Filt Rate > 60; Lipase 36 U/L (8-78); Magnesium 2.0 mg/dL (1.6-2.6); Potassium 3.9 mmol/L (3.3-5.1); Sodium 140 mmol/L (135-145); Total Protein 7.9 g/dL (6.5-8.0)
[2025-02-19] MEDS: Lactated Ringers 1,000 ML 999 ML IV (21:40)
[2025-02-19] MEDS: iohexoL 350 MG/ML 100 ML INFUS..BTL 85 ML IV (23:10)
[2025-02-19] MEDS: vancomycin/NS 2,000 MG/500 ML PLAST..BAG 250 MG IV (23:28)
--- NOTE | 2025-02-20 00:32 | PC.NURSE ---
having red man reaction to vancomycin - per MD slowed pt rate to 125cc/hr, and he will order benadryl, no distress. pt has red rasho on neck and torso. MD at bedside
--- NOTE | 2025-02-20 01:07 | P.HPHOSP_ITS ---
History of Present Illness Date of Service: 02/20/25 Attending physician on admission: Orion Pickett Chief Complaint: UTI ? aspiration Pt is a 34 yo male with cerebral palsycerebral palsy with quadriplegia, mild intellectual disability, and neuromuscular scoliosis , bed bound in need of 24/7 care, UTI, incontinence of bowel and bladder, chronic constipation was seen today in the ED for continued poor po intake with both fluids, solids patient. Pt noted to be having episodes of gagging on exam. but no emesis. Pt was seen in ED yesterday and diagnsed with UTI and PNA. Pt did recieve IV ABX and was sent home on po ABX. ED provider noted that 1 blood culture was positive for Gram- positive cocci in clusters, a possible contaminant as only 1 of 2 blood cultures were positive. After review of pt's history, pt's mother indicates that every night, pt is laid to rest on his stomach. Pt has done this for some time but has no ability to protect his airway or change his position at home and is not monitored on POX when sleeping. There is the possibility pt may be aspirating. Patient's caregiver denies any or obvious weight loss. Patient is not having any diarrhea. Patient is able to answer no when asked if he is in pain. Patient is started on vancomycin and cefepime due to an allergy to Zosyn and per ED provider, patient did experience some redness with the vancomycin in the rate was slowed and patient is tolerating well now. Work up in the ED notes CT of the abdomen has a questionable strandy change around the pancreatic head and recommend checking lipase. Lipase currently 36. Patient currently has no abdominal symptoms or pain with exam. Patient is noted to have large amount of stool in the rectal vault and has history of constipation. CTA of the chest was negative for PE with no focal consolidation, masses or lymphadenopathy. Patient does not have a pericardial effusion or cardiomegaly. Pt has no leukocytosis or bandemia. Lactic acid 1.7. Electrolytes are stable. Renal function at baseline. UA on 02/18 did indicate a UTI. Urine culture from that visit is still pending. Chest x-ray done on 02/18 noted a left lower lung consolidation indicating pneumonia. Review of Systems 2 Review of Systems: Pt only able to respond yes or no and stated no to pain. Pt not able to understand nausea. ROS otherwise limited. Yes Unobtainable due to mental condition [facility] Medical History (Updated 02/20/25 @ 02:22 by AGNES Burch) Urinary tract infection Immobility Pneumonia Cerebral palsy Cognitive capacity: awake, able to respond yes or no, noted cognitive impairment Functional capacity: bed bound (Casimiro lift electric wheelchair ) Social History Alcohol intake: never Smoked in Last 30 Days: No Advance Directives: No Advance Directives Information Provided: No Do you have a plan to hurt others: No Plan Ebola Risk: Travel/Contact With Anyone From Affected Area/s: No Has Patient Experienced Ebola Symptoms: No Meds Allergies Allergy/AdvReac Type Severity Reaction Status Date / Time No Known Allergies (No Known Allergy Verified 02/19/25 18:37 Allergies*) Active Medications: Current Medications Pharmacy Consult (Consult Rx Vancomycin Dosing) 1 each MISCELLANE DAILY PRN PRN Reason: Consult order Physical Exam 2 Vital Signs and Narrative: Vital Signs: Last Vital Signs Temp 97.9 F 02/19/25 20:00 Pulse 85 02/19/25 20:00 BP 126/90 H 02/19/25 20:00 Pulse Ox 99 02/19/25 20:36 O2 Del Method Room Air 02/19/25 20:36 BMI result Body Mass Index 30.9 awake and alert watching TV unable to give history, mother at bedside . Neuro: unable to follow commands, unable to use upper or lower ext EYES: PERRLA, EOM intact, sclera nonicteric ENT: hearing intact, noted to be gagging intermittently, uvula midline, lips dry, nares patent no epistaxis Cardiac: S1 S2 RRR, no murmur, no JVD, no edema in Lower ext Pulmonary: lungs diminisghed B Abdominal: BS active in all 4 quadrants, no guarding, tenderness, rebounding MSK: strength 1/5 upper and lower extremitie, contracted in upper and lower ext : no CVA tenderness no bladder distension Extremities: no edema in lower extremities, PT and DP pulses palpable +2 Psych: mood baseline judgement and insight poor Skin: redness from Vanco resolved, no new other rashes or lesions Results Labs 02/19/25 20:30 02/19/25 21:07 Labs: Laboratory Results - last 24 hr 02/19/25 02/19/25 02/19/25 19:02 20:30 21:07 MCV 84.4 MCH 28.8 MCHC 34.1 RDW 12.9 Plt Count 227 MPV 11.1 Immature Gran % (Auto) 0.2 Neut % (Auto) 69.8 Lymph % (Auto) 20.2 Edmunds % (Auto) 8.1 Eos % (Auto) 1.1 Baso % (Auto) 0.6 Lymph # (Auto) 2.0 Edmunds # (Auto) 0.8 Eos # (Auto) 0.1 Baso # (Auto) 0.1 Abs Immat Gran (auto) 0.02 Absolute Neuts (auto) 7.0 Absolute Nucleated RBC 0.000 Nucleated RBC % (auto) 0.0 Anion Gap 18 Estim Creat Clear Calc 176.1 Estimated GFR > 60 Random Glucose 90 Lactic Acid 1.7 Calcium 9.8 Magnesium 2.0 Total Bilirubin 0.7 Direct Bilirubin 0.2 AST 25 ALT 27 Alkaline Phosphatase 108 C-Reactive Protein 0.27 Total Protein 7.9 Albumin 4.8 Lipase 36 Influenza Type A (PCR) NEGATIVE Influenza Type B (PCR) NEGATIVE RSV RNA Qual (PCR) NEGATIVE SARS-CoV-2 RNA (RT-PCR) NEGATIVE ECG Prior ECG tracings: not available for review Imaging Radiologist's Impressions: CT ABD PELVIS MPRESSION: Questionable strandy changes around the pancreatic head, correlate with lipase. Otherwise, no acute abnormality in the abdomen or pelvis. Normal appendix. Large amount of stool in the rectal vault. CTA IMPRESSION: 1. No pulmonary emboli. CXR Findings: No consolidation or effusion. Low lung volume. Heart size is normal. No acute fracture. IMPRESSION: 1. Low lung volume, otherwise unremark Assessment and Plan (1) Urinary tract infection: Qualifiers: Hematuria presence: without hematuria Urinary tract infection type: a cute cystitis Qualified Code(s): N30.00 - Acute cystitis without hematuria Status: Acute (2) Aspiration into airway: Qualifiers: Encounter type: initial encounter Qualified Code(s): T17.908A - Unspecified foreign body in respiratory tract, part unspecified causing other injury, initial encounter Status: Acute (3) Positive blood culture: Status: Acute Plan Pt is a 34 yo male with cerebral palsycerebral palsy with quadriplegia, mild intellectual disability, and neuromuscular scoliosis , bed bound in need of 24/7 care, UTI, incontinence of bowel and bladder, chronic constipation was seen today in the ED for continued poor po intake with both fluids, solids patient. Pt noted to be having episodes of gagging on exam. but no emesis. Pt was seen in ED yesterday and diagnosed with UTI and PNA. Pt did recieve IV ABX and was sent home on po ABX. Pt returned today with poor po intake of fluids, food and medications. Pt's mother was concerned. UTI UA posiitve from ED visit 02/18/25 Pt now on Vancomycin and Cefepime (Zosyn allergy) and Vanco running at lower rate due to redness with initial infusion IVF continue, LA WNL Follow urine culture Bladder scan Qs and as needed, provider to be notified if > 250 cc Possible Aspiration without obvious PNA/ GERD Caregiver reports that pt normally sleeps on stomach at night - pt is not able to protect airway or change position. Education offered on the potential risks associated with this position for this patient. Speech therapy swallow eval ordered Pt NPO, mother can swab mouth with water as needed Protonix IV daily Antiemtics as needed as pt observed gagging on exam Aspiration precautions ordered Positive Blood Culture 1/2 Gram positive cocci from ED Visit 02/18/25 Possible contaminant Follow BCs Pt on Vanco and Cefepime Constipation Dulcolax suppository one now and prn as rectum noted to have stool burden Miralax daily once no longer NPO CT neg for SBO, ileus, free fluid or air Cerebral palsy with quadraplegia, mild intellectual disability, neuromuscular scoliosis Pt is dependent for all aspects of care Pt dos not use O2 at home Pulmonary physiotherapy is done at home - cupping will order BID DVT prophylaxis: Lovenox MED REC PENDING FULL CODE Patient requires at least a 2 midnight stay for IV antibiotic and workup for possible aspiration with expert consultation with speech therapy. Quality Stroke Does the patient have a stroke diagnosis?: No Reason for No Anti-thrombotic by Day Two: N/A - Med Ordered VTE Prior VTE?: No VTE Risk Level:: Medical - moderate - high VTE Device Contraindication: N/A - Device Ordered VTE Drug Contraindication: N/A - Med Ordered
--- NOTE | 2025-02-20 01:31 | PC.NURSE ---
pt redness has resolved for the most part. hospital md at bedside
--- NOTE | 2025-02-20 03:09 | PC.NURSE ---
pt caregiver left to go home to sleep, will monitor patient throughout shift
[2025-02-20 04:00] VITALS: O2SAT 99
[2025-02-20 04:38] LABS: Hematocrit 42.9 % (42.0-52.0); Hemoglobin 15.1 g/dl (14.0-18.0); Imm Gran Abs Auto 0.02 X10*3/uL (0.00-0.03); Imm Gran Pct Auto 0.2 % (0.0-0.4); Lymphocytes Absolute Auto 1.9 X10*3/uL (1.2-4.9); MANUAL DIFF FLAG SCAN; Mean Corpuscular HGB Conc 35.2 g/dl (31.0-36.0); Mean Corpuscular Hemoglobin 29.5 pg (27.0-33.0); Mean Corpuscular Volume 83.8 fL (80.0-98.0); NRBC Abs Auto 0.000 X10*3/uL (0.0-0.012); NRBC Pct Auto 0.0 /100WBC (0.0-0.2); Platelet Count 212 X10*3/uL (160-400); Red Blood Count 5.12 X10*6/uL (4.60-5.80); SCAN SMEAR FLAG 1; White Blood Count 12.7 X10*3/uL (4.8-10.8)
[2025-02-20 04:52] LABS: Anion Gap 17 (12-20); Blood Urea Nitrogen 7 mg/dL (9-16); Calcium 9.0 mg/dL (8.4-10.2); Carbon Dioxide 20 mmol/L (22-29); Chloride 107 mmol/L (96-108); Creatinine Clr Calc Pharmacy 179.4; Estimated Glomerular Filt Rate > 60; Potassium 3.6 mmol/L (3.3-5.1); Sodium 140 mmol/L (135-145)
--- NOTE | 2025-02-20 07:52 | PC.NURSE ---
pt has large amount of very soft brown stool. complete bed change. bladder scan 27ml. bed pad and sheets also wet with urine
--- NOTE | 2025-02-20 09:34 | PHA.MEDREC ---
Addendum entered by Alex Ayon, PharmD 02/20/25 09:46: med rec checked by [facility] Original Note: Pharmacy Consult ? Medication Reconciliation Pharmacy has completed the medication reconciliation. Spoke with pt mother over the phone and she was able to confirm pt medications. Pt confirmed pt was just discharged with us yesterday (02/19) and started on an Amoxicillin-Potassium Clavulanate 875-125mg once Q12H and Azithromycin 250mg daily before discharged; mother states pt was not able to take 2nd dose of Amoxicillin last night due to pt not being able to eat anything.
[2025-02-20] MEDS: 0.9 % Sodium Chloride Flush 3 ML SYRINGE IVFLUSH ×2 (09:45→22:06)
--- NOTE | 2025-02-20 10:52 | HO.PM.IMPN ---
Subjective Subjective Date of Service: 02/20/25 Interval History: denies pain but history limited by mental capacity Review of Systems Review of Systems: Yes all other systems are reviewed and are negative Physical Exam Vital Signs: Vital Signs: Last Vital Signs Temp 97.9 F 02/19/25 20:00 Pulse 85 02/19/25 20:00 BP 126/90 H 02/19/25 20:00 Pulse Ox 99 02/20/25 04:00 O2 Del Method Room Air 02/20/25 04:00 BMI result Body Mass Index 30.9 Gen: in no acute distress HEENT: sclera anicteric, moist mucus membranes Neck: supple Lungs: clear to auscultation bilaterally Heart: regular rate and rhythm, no murmurs Abd: soft, non-tender, non-distended Ext: no edema Skin: warm/well-perfused Neuro: alert, answers simple questions, contracted limbs Psych: appropriate affect Objective Data Active Medications Acetaminophen (Acetaminophen 325 Mg Tablet) 650 mg PO Q6H PRN PRN Reason: Pain, Mild 1-3,fever,headache Albuterol/Ipratropium (Albuterol/Iprat 2.5/0.5mg 3 Ml Ampul.Neb) 3 ml INHALE Q4H PRN PRN Reason: Shortness of Breath/Wheezing Baclofen (Baclofen 10 Mg Tablet) 30 mg PO BID KEDAR Bisacodyl (Bisacodyl 10 Mg Supp.Rect) 10 mg AK BEDTIME PRN PRN Reason: Constipation Calcium Carbonate (Calcium Carbonate 750 Mg Tab.Chew) 750 mg PO Q4H PRN PRN Reason: Heartburn Ceftriaxone Sodium 2 gm/ (Sodium Chloride) 50 mls @ 100 mls/hr IV Q24H KEDAR Loratadine (Loratadine 10 Mg Tablet) 10 mg PO DAILY PRN PRN Reason: sinusitis Magnesium Hydroxide (Milk Of Magnesia 30 Ml Oral.Susp) 30 ml PO DAILY PRN PRN Reason: Constipation Melatonin (Melatonin 3 Mg Tablet) 6 mg PO BEDTIME PRN PRN Reason: Insomnia Non-Formulary Medication (Oxycodone) 10 mg PO TID KEDAR Ondansetron HCl (Ondansetron Hcl 4 Mg/2 Ml Vial) 4 mg IVPUSH Q8H PRN PRN Reason: Nausea and Vomiting Polyethylene Glycol (Polyethylene Glycol 3350 17 Gm Powd.Pack) 17 gm PO DAILY PRN PRN Reason: Constipation Polyethylene Glycol (Polyethylene Glycol 3350 17 Gm Powd.Pack) 17 gm PO DAILY [facility] Senna (Sennosides 8.6 Mg Tablet) 17.2 mg PO BEDTIME [facility] Sodium Chloride (0.9 % Sodium Chloride Flush 3 Ml Syringe) 3 ml IVFLUSH QSHIFT [facility] Last Admin: 02/20/25 09:45 Dose: 3 ml Documented By: BETHANIE Tamsulosin HCl (Tamsulosin Hcl 0.4 Mg Capsule) 0.4 mg PO DAILY [facility] Labs 02/20/25 04:15 02/20/25 04:15 Labs: Laboratory Results - last 24 hr 02/19/25 02/19/25 02/19/25 19:02 20:30 21:07 MCV 84.4 MCH 28.8 MCHC 34.1 RDW 12.9 Plt Count 227 MPV 11.1 Immature Gran % (Auto) 0.2 Neut % (Auto) 69.8 Lymph % (Auto) 20.2 Will % (Auto) 8.1 Eos % (Auto) 1.1 Baso % (Auto) 0.6 Lymph # (Auto) 2.0 Will # (Auto) 0.8 Eos # (Auto) 0.1 Baso # (Auto) 0.1 Abs Immat Gran (auto) 0.02 Absolute Neuts (auto) 7.0 Absolute Nucleated RBC 0.000 Nucleated RBC % (auto) 0.0 Smear Tech's Comments Anion Gap 18 Estim Creat Clear Calc 176.1 Estimated GFR > 60 Random Glucose 90 Lactic Acid 1.7 Calcium 9.8 Magnesium 2.0 Total Bilirubin 0.7 Direct Bilirubin 0.2 AST 25 ALT 27 Alkaline Phosphatase 108 C-Reactive Protein 0.27 Total Protein 7.9 Albumin 4.8 Lipase 36 Influenza Type A (PCR) NEGATIVE Influenza Type B (PCR) NEGATIVE RSV RNA Qual (PCR) NEGATIVE SARS-CoV-2 RNA (RT-PCR) NEGATIVE 02/20/25 04:15 MCV 83.8 MCH 29.5 MCHC 35.2 RDW 13.0 Plt Count 212 MPV 11.1 Immature Gran % (Auto) 0.2 Neut % (Auto) 68.3 Lymph % (Auto) 15.2 L Will % (Auto) 14.5 H Eos % (Auto) 1.4 Baso % (Auto) 0.4 Lymph # (Auto) 1.9 Will # (Auto) 1.8 H Eos # (Auto) 0.2 Baso # (Auto) 0.1 Abs Immat Gran (auto) 0.02 Absolute Neuts (auto) 8.7 H Absolute Nucleated RBC 0.000 Nucleated RBC % (auto) 0.0 Smear Tech's Comments VERIFIED Anion Gap 17 Estim Creat Clear Calc 179.4 Estimated GFR > 60 Random Glucose 94 Lactic Acid Calcium 9.0 D Magnesium Total Bilirubin Direct Bilirubin AST ALT Alkaline Phosphatase C-Reactive Protein Total Protein Albumin Lipase Influenza Type A (PCR) Influenza Type B (PCR) RSV RNA Qual (PCR) SARS-CoV-2 RNA (RT-PCR) Assessment and Plan (1) Urinary tract infection: Status: Acute Plan 34yo M with cerebral palsy with quadriplegia, mild intellectual disability, and neuromuscular scoliosis, bedbound with 24/7 care, incontinence of bowel and bladder, chronic constipation, and hx UTI; sent home from ED day before admission with abntibiotics for UTI and PNA, returned for poor PO intake UTI - ceftriaxone 02/20-, follow UCx - BCx from 02/18 growing coagulase-negative Staphylococcus, a contaminant; will d/c vancomycin possible aspiration - no PNA on CTA; EDUCATIONAL ADMINISTRATION TEACHER consultation pending constipation: bowel regimen cerebral palsy: baclofen chronic pain: oxycodone VTE ppx: enoxaparin dispo: eventual home with 24/7 care In my clinical judgment, the patient requires continued inpatient hospitalization for the following reasons: IV ABX Total time managing care of this patient today: 35 minutes. Quality Stroke Does the patient have a stroke diagnosis?: No Reason for No Anti-thrombotic by Day Two: N/A - Med Ordered VTE Prior VTE?: No VTE Risk Level:: Medical - moderate - high VTE Device Contraindication: N/A - Device Ordered VTE Drug Contraindication: N/A - Med Ordered
[2025-02-20 11:13] VITALS: BMI 26.7
[2025-02-20 11:27] VITALS: BP 158/93; PULSE 115; RESP 16; TEMP 36.6; O2SAT 96
[2025-02-20] MEDS: Morphine Sulfate Oral Sol 10 MG/5 ML SOLUTION 15 MG PO ×2 (15:06→20:15)
[2025-02-20 16:00] VITALS: BP 131/85; PULSE 107; RESP 19; TEMP 37.2; O2SAT 96
--- NOTE | 2025-02-20 17:26 | MHC.SL.SWA ---
Speech Pathologist Impression: Mild Oropharyngeal dysphagia Risk of Aspiration Due to: Cerbral Palsy, Current PNA/? aspiration, UTI Dysphasia Diet Status: Recommend START diet of NDD1 (puree), THIN liquids. Medications CRUSHED in puree or in liquid form. 1:1 feeding assistance required. Liquid Consistency and Strategies for Safe Swallow: Liquid Intake Recommendation: Thin Liquid Intake Strategies: Solid Food Consistency: Dietary Recommendations: Pureed (NDD1) Additional Modifications to Solid Foods: Patient only accepting PO from family vs SALES SUPPORT ASSISTANT. Family providing appropriate feeding assistance and reporting that they will try to be with patient for meals to best increase PO interest/intake. Oral Medication Intake: Crushed with Puree Please contact the pharmacy regarding appropriate crushable or liquid drug formulations that are available whenever modified delivery is recommended. Compensatory Strategies and Precautions to be Taken for Safe Swallow: Sit Upright Slow self-feeding rate Small sips/bites Alternate liquids/solids Remain upright after meal (30 minutes) Supervision While Eating and Drinking for Safe Swallow: Total Assistance (1:1) Foods to Avoid: Swallowing Recommended Treatments: Compensatory Strategies Recommendation for Speech: Inpatient Speech Therapy Comment: Patient presents with mild oropharyngeal dysphagia. Patient attempted to be seen for swallowing evaluation in ER. Patient politely refusing PO from SALES SUPPORT ASSISTANT. Re-attempt to see patient with family in the room successful. Minimal PO accepted this date and only accepted with 1:1 feeding by family vs SALES SUPPORT ASSISTANT. Per patient's mother, who is his full-time bow string maker, he typically consumes blended foods and small pieces of meat; suspected to be closed to ground/mechanical diet. Patient with very specific food preferences; only likes chocolate ensures and pudding- dietitian consult appreciated. Patient accepting a couple sips of apple juice via straw and a few bites of pudding. Patient with no gagging this date; mom reports that he does this when he dislikes a food. Patient with slow AP transit but swallow suspected to be timely. Patient with no vocal changes (minimally verbal) or s/sx of penetration/aspiration. Patient not willing to try any further PO. Recommend START diet of NDD1 (puree), THIN liquids. Medications CRUSHED in puree or in liquid form. Patient may be difficult to feed as only accepting PO from family this date; medications may be difficult to administer. SALES SUPPORT ASSISTANT recommendations communicated with RD, RN, and MD via secure chat. SALES SUPPORT ASSISTANT to continue to follow. Frequency/Duration: M-F Daily Date Range for Service Req: Timeline to reassess: Separator Operator [employer] Clinican/Clinical Fellow: No Supervisory Statement: I have reviewed and agree with the student/clinical fellow's documentation: No Speech Language Pathologist: Shahnaz Ross M.A., CCC-SALES SUPPORT ASSISTANT
[2025-02-20 20:00] VITALS: BP 136/82; PULSE 120; RESP 20; TEMP 37.3; O2SAT 95
[2025-02-20] MEDS: Acetaminophen Supp 650 MG SUPP.RECT PR (21:11)
[2025-02-20 23:00] VITALS: BP 119/70; PULSE 120; RESP 20; TEMP 36.8; O2SAT 94
[2025-02-20] MEDS: Lactated Ringers 500 ML 999 ML IV (23:06)
[2025-02-20] MEDS: Lactated Ringers 1,000 ML 125 ML IVCONT (23:40)
[2025-02-20 23:53] VITALS: BP 133/82; PULSE 113; RESP 18; TEMP 36.9; O2SAT 95
[2025-02-21 03:21] VITALS: BP 103/60; PULSE 93; RESP 18; TEMP 36.6; O2SAT 96
[2025-02-21 07:28] VITALS: BP 132/71; PULSE 113; RESP 18; TEMP 37.4; O2SAT 96
[2025-02-21] MEDS: Lactated Ringers 1,000 ML 125 ML IVCONT ×3 (08:03→23:44)
[2025-02-21] MEDS: Morphine Sulfate Oral Sol 10 MG/5 ML SOLUTION 15 MG PO ×2 (08:46→20:02)
--- NOTE | 2025-02-21 08:59 | PC.NURSE ---
Patient vomited small amt of liquid after taking morning meds,refused flomax,Dr. Sotelo made aware ,will medicate with Zofran
--- NOTE | 2025-02-21 11:13 | P.PNIM_ITS ---
Subjective Subjective Date of Service: 02/21/25 Interval History: no new events Review of Systems Review of Systems: Yes Unobtainable due to mental status Physical Exam 2 Vital Signs: Vital Signs: Last Vital Signs Temp 99.4 F 02/21/25 07:28 Pulse 113 H 02/21/25 07:28 Resp 18 02/21/25 07:28 BP 132/71 02/21/25 07:28 Pulse Ox 96 02/21/25 07:28 O2 Del Method Room Air 02/21/25 07:28 BMI result Body Mass Index 26.7 Gen: in no acute distress HEENT: sclera anicteric, moist mucus membranes Neck: supple Lungs: clear to auscultation bilaterally Heart: regular rate and rhythm, no murmurs Abd: soft, non-tender, non-distended Ext: no edema Skin: warm/well-perfused Neuro: alert, answers simple questions, contracted limbs Psych: appropriate affect Objective Data Active Medications Acetaminophen (Acetaminophen 325 Mg Tablet) 650 mg PO Q6H PRN PRN Reason: Pain, Mild 1-3,fever,headache Albuterol/Ipratropium (Albuterol/Iprat 2.5/0.5mg 3 Ml Ampul.Neb) 3 ml INHALE Q4H PRN PRN Reason: Shortness of Breath/Wheezing Baclofen (Baclofen 10 Mg Tablet) 30 mg PO BID [facility] Last Admin: 02/21/25 08:45 Dose: 30 mg Documented By: DARCIE Bisacodyl (Bisacodyl 10 Mg Supp.Rect) 10 mg LA BEDTIME PRN PRN Reason: Constipation Calcium Carbonate (Calcium Carbonate 750 Mg Tab.Chew) 750 mg PO Q4H PRN PRN Reason: Heartburn Ceftriaxone Sodium 2 gm/ (Sodium Chloride) 50 mls @ 100 mls/hr IV Q24H [facility] Last Infusion: 02/20/25 22:37 Dose: Infused Documented By: TAVO Lactated Ringer's (Lr) 1,000 mls @ 125 mls/hr IVCONT .Q8H [facility] Last Admin: 02/21/25 08:03 Dose: 125 mls/hr Documented By: DARCIE Loratadine (Loratadine 10 Mg Tablet) 10 mg PO DAILY PRN PRN Reason: sinusitis Magnesium Hydroxide (Milk Of Magnesia 30 Ml Oral.Susp) 30 ml PO DAILY PRN PRN Reason: Constipation Melatonin (Melatonin 3 Mg Tablet) 6 mg PO BEDTIME PRN PRN Reason: Insomnia Morphine Sulfate (Morphine Sulfate Oral Peyton 10 Mg/5 Ml Solution) 15 mg PO TID [facility] Last Admin: 02/21/25 08:46 Dose: 15 mg Documented By: DARCIE Ondansetron HCl (Ondansetron Hcl 4 Mg/2 Ml Vial) 4 mg IVPUSH Q8H PRN PRN Reason: Nausea and Vomiting Last Admin: 02/21/25 09:04 Dose: 4 mg Documented By: DARCIE Polyethylene Glycol (Polyethylene Glycol 3350 17 Gm Powd.Pack) 17 gm PO DAILY PRN PRN Reason: Constipation Polyethylene Glycol (Polyethylene Glycol 3350 17 Gm Powd.Pack) 17 gm PO DAILY [facility] Last Admin: 02/21/25 08:46 Dose: 17 gm Documented By: DARCIE Senna (Sennosides 8.6 Mg Tablet) 17.2 mg PO BEDTIME [facility] Last Admin: 02/20/25 20:28 Dose: Not Given Documented By: TAVO Non-Admin Reason: pt had BM during day Sodium Chloride (0.9 % Sodium Chloride Flush 3 Ml Syringe) 3 ml IVFLUSH QSHIFT [facility] Last Admin: 02/21/25 08:47 Dose: Not Given Documented By: DARCIE Non-Admin Reason: IV Running Tamsulosin HCl (Tamsulosin Hcl 0.4 Mg Capsule) 0.4 mg PO DAILY [facility] Last Admin: 02/21/25 08:45 Dose: 0.4 mg Documented By: DARCIE Labs 02/20/25 04:15 02/20/25 04:15 Microbiology Microbiology Results: Microbiology 02/19/25 20:30 Blood Culture - Preliminary Blood - Venous No growth after 24 hours. 02/19/25 20:30 Blood Culture - Preliminary Blood - Venous No growth after 24 hours. Assessment and Plan (1) Urinary tract infection: Status: Acute Plan d2 for 34yo M with cerebral palsy with quadriplegia, mild intellectual disability, and neuromuscular scoliosis, bedbound with 24/7 care, incontinence of bowel and bladder, chronic constipation, and hx UTI; sent home from ED day before admission with antibiotics for UTI and PNA, returned for poor PO intake UTI - ceftriaxone 02/20-, follow UCx - BCx from 02/18 growing coagulase-negative Staphylococcus, a contaminant; will d/c vancomycin possible aspiration - no PNA on CTA; USER EXPERIENCE RESEARCHER consulted, NDD1 solids + thin liquids constipation: bowel regimen cerebral palsy: baclofen chronic pain: oxycodone VTE ppx: enoxaparin dispo: eventual home with 16/10 care In my clinical judgment, the patient requires continued inpatient hospitalization for the following reasons: IV ABX Total time managing care of this patient today: 35 minutes. Quality Stroke Does the patient have a stroke diagnosis?: No Reason for No Anti-thrombotic by Day Two: N/A - Med Ordered VTE Prior VTE?: No VTE Risk Level:: Medical - moderate - high VTE Device Contraindication: N/A - Device Ordered VTE Drug Contraindication: N/A - Med Ordered
[2025-02-21 12:00] VITALS: BP 133/83; PULSE 101; RESP 19; TEMP 36.4; O2SAT 97
[2025-02-21 15:10] VITALS: BP 142/88; PULSE 104; RESP 18; TEMP 37.3; O2SAT 96
--- NOTE | 2025-02-21 18:40 | PC.NURSE ---
Bladder scan 267 ml reported by RATTAN WORKER Dr. Albert Mills notified
[2025-02-21 19:08] VITALS: BP 132/79; PULSE 100; RESP 18; TEMP 36.9; O2SAT 95
[2025-02-21] MEDS: 0.9 % Sodium Chloride Flush 3 ML SYRINGE IVFLUSH (23:01)
[2025-02-21 23:40] VITALS: BP 143/79; PULSE 122; RESP 16; TEMP 38.2; O2SAT 94
[2025-02-22 00:35] VITALS: TEMP 37.2
[2025-02-22 03:26] VITALS: BP 132/81; PULSE 108; RESP 16; TEMP 37.2; O2SAT 94
[2025-02-22 07:59] VITALS: BP 136/85; PULSE 95; RESP 18; TEMP 36.6; O2SAT 96
[2025-02-22] MEDS: Morphine Sulfate Oral Sol 10 MG/5 ML SOLUTION 15 MG PO (10:13)
[2025-02-22] MEDS: Lactated Ringers 1,000 ML 125 ML IVCONT (11:08)
[2025-02-22 12:00] VITALS: BP 113/86; PULSE 88; RESP 18; TEMP 36.4; O2SAT 96
--- NOTE | 2025-02-22 15:14 | P.DS_ITS ---
DS: Providers Provider Date of Service: 02/22/25 Date of admission: 02/20/25 01:03 Date of discharge: 02/22/25 Primary care physician: Rebecca Magaña MD DS: Diagnosis Discharge Diagnosis (1) Urinary tract infection: Status: Acute DS: Summary Hospital Course Hospital Course: From the history and physical by the admitting hospitalist, Shannon De Leon, 02/20/25: 'Pt is a 34 yo male with cerebral palsycerebral palsy with quadriplegia, mild intellectual disability, and neuromuscular scoliosis , bed bound in need of 24/7 care, UTI, incontinence of bowel and bladder, chronic constipation was seen today in the ED for continued poor po intake with both fluids, solids patient. Pt noted to be having episodes of gagging on exam. but no emesis. Pt was seen in ED yesterday and diagnsed with UTI and PNA. Pt did recieve IV ABX and was sent home on po ABX. ED provider noted that 1 blood culture was positive for Gram-positive cocci in clusters, a possible contaminant as only 1 of 2 blood cultures were positive. After review of pt's history, pt's mother indicates that every night, pt is laid to rest on his stomach. Pt has done this for some time but has no ability to protect his airway or change his position at home and is not monitored on POX when sleeping. There is the possibility pt may be aspirating. Patient's caregiver denies any or obvious weight loss. Patient is not having any diarrhea. Patient is able to answer no when asked if he is in pain. Patient is started on vancomycin and cefepime due to an allergy to Zosyn and per ED provider, patient did experience some redness with the vancomycin in the rate was slowed and patient is tolerating well now. Work up in the ED notes CT of the abdomen has a questionable strandy change around the pancreatic head and recommend checking lipase. Lipase currently 36. Patient currently has no abdominal symptoms or pain with exam. Patient is noted to have large amount of stool in the rectal vault and has history of constipation. CTA of the chest was negative for PE with no focal consolidation, masses or lymphadenopathy. Patient does not have a pericardial effusion or cardiomegaly. Pt has no leukocytosis or bandemia. Lactic acid 1.7. Electrolytes are stable. Renal function at baseline. UA on 02/18 did indicate a UTI. Urine culture from that visit is still pending. Chest x-ray done on 02/18 noted a left lower lung consolidation indicating pneumonia.' 34yo M with cerebral palsy with quadriplegia, mild intellectual disability, and neuromuscular scoliosis, bedbound with 24/7 care, incontinence of bowel and bladder, chronic constipation, and hx UTI; sent home from ED day before admission with antibiotics for UTI and PNA, returned for poor PO intake. Treated with ceftriaxone IV. Urine culture contaminated. BCx from 02/18 grew coagulase-negative Staphylococcus. Vancomycin discontinued. No pneumonia on CT angio of the chest. Seen by COMMERCIAL LAWN SPECIALIST; recommended NDD1 [pureed] solids and thin liquids, which the patient tolerated without issues. He was discharged back home in the care of his family, to take 4 more days of antibiotic coverage with cefdinir. Time Attestation Discharge Coordination Time (in mins): 35 Quality: Safe Use of Opioids Does Pt have an Active Cancer Diagnosis on the Problem List?: No Quality: Stroke Does the patient have a stroke diagnosis?: No Physical Exam Vital Signs: Vital Signs: Last Vital Signs Temp 97.6 F 02/22/25 12:00 Pulse 88 02/22/25 12:00 Resp 18 02/22/25 12:00 BP 113/86 02/22/25 12:00 Pulse Ox 96 02/22/25 12:00 O2 Del Method Room Air 02/22/25 12:00 BMI result Body Mass Index 26.7 Gen: in no acute distress HEENT: sclera anicteric, moist mucus membranes Neck: supple Lungs: clear to auscultation bilaterally Heart: regular rate and rhythm, no murmurs Abd: soft, non-tender, non-distended Ext: no edema Skin: warm/well-perfused Neuro: alert, answers simple questions, contracted limbs Psych: appropriate affect DS: Data Data Completed and Pending Completed studies during hospitalization [Text1]: Laboratory Results WBC 12.7 X10*3/uL (4.8-10.8) H 02/20/25 04:15 RBC 5.12 X10*6/uL (4.60-5.80) 02/20/25 04:15 Hgb 15.1 g/dl (14.0-18.0) 02/20/25 04:15 Hct 42.9 % (42.0-52.0) 02/20/25 04:15 MCV 83.8 fL (80.0-98.0) 02/20/25 04:15 MCH 29.5 pg (27.0-33.0) 02/20/25 04:15 MCHC 35.2 g/dl (31.0-36.0) 02/20/25 04:15 RDW 13.0 % (11.0-16.0) 02/20/25 04:15 Plt Count 212 X10*3/uL (160-400) 02/20/25 04:15 MPV 11.1 fL (9.4-12.4) 02/20/25 04:15 Immature Gran % (Auto) 0.2 % (0.0-0.4) 02/20/25 04:15 Neut % (Auto) 68.3 % (45-73) 02/20/25 04:15 Lymph % (Auto) 15.2 % (20-40) L 02/20/25 04:15 [place] % (Auto) 14.5 % (2-11) H 02/20/25 04:15 Eos % (Auto) 1.4 % (0-4) 02/20/25 04:15 Baso % (Auto) 0.4 % (0-2) 02/20/25 04:15 Lymph # (Auto) 1.9 X10*3/uL (1.2-4.9) 02/20/25 04:15 [place] # (Auto) 1.8 X10*3/uL (0.1-1.2) H 02/20/25 04:15 Eos # (Auto) 0.2 X10*3/uL (0.0-0.4) 02/20/25 04:15 Baso # (Auto) 0.1 X10*3/uL (0.0-0.2) 02/20/25 04:15 Abs Immat Gran (auto) 0.02 X10*3/uL (0.00-0.03) 02/20/25 04:15 Absolute Neuts (auto) 8.7 x10*3/uL (2.0-8.3) H 02/20/25 04:15 Absolute Nucleated RBC 0.000 X10*3/uL (0.0-0.012) 02/20/25 04:15 Nucleated RBC % (auto) 0.0 /100WBC (0.0-0.2) 02/20/25 04:15 Smear Tech's Comments VERIFIED 02/20/25 04:15 Sodium 140 mmol/L (135-145) 02/20/25 04:15 Potassium 3.6 mmol/L (3.3-5.1) 02/20/25 04:15 Chloride 107 mmol/L (96-108) 02/20/25 04:15 Carbon Dioxide 20 mmol/L (22-29) L 02/20/25 04:15 Anion Gap 17 (12-20) 02/20/25 04:15 BUN 7 mg/dL (9-16) L 02/20/25 04:15 Creatinine 0.52 mg/dL (0.5-1.4) 02/20/25 04:15 Estim Creat Clear Calc 179.4 02/20/25 04:15 Estimated GFR > 60 02/20/25 04:15 Random Glucose 94 mg/dL (60-115) 02/20/25 04:15 Lactic Acid 1.7 mmol/L (0.5-2.0) 02/19/25 20:30 Calcium 9.0 mg/dL (8.4-10.2) D 02/20/25 04:15 Magnesium 2.0 mg/dL (1.6-2.6) 02/19/25 21:07 Total Bilirubin 0.7 mg/dL (0.0-1.0) 02/19/25 21:07 Direct Bilirubin 0.2 mg/dL (0.0-0.5) 02/19/25 21:07 AST 25 U/L (5-37) 02/19/25 21:07 ALT 27 U/L (0-40) 02/19/25 21:07 Alkaline Phosphatase 108 U/L (39-117) 02/19/25 21:07 C-Reactive Protein 0.27 mg/dL (< or = 0.50) 02/19/25 21:07 Total Protein 7.9 g/dL (6.5-8.0) 02/19/25 21:07 Albumin 4.8 g/dL (3.5-5.0) 02/19/25 21:07 Lipase 36 U/L (8-78) 02/19/25 21:07 Influenza Type A (PCR) NEGATIVE (Negative) 02/19/25 19:02 Influenza Type B (PCR) NEGATIVE (Negative) 02/19/25 19:02 RSV RNA Qual (PCR) NEGATIVE (Negative) 02/19/25 19:02 SARS-CoV-2 RNA (RT-PCR) NEGATIVE (Negative) 02/19/25 19:02 Discharge Plan Discharge Anticipated Discharge Date/Time: 02/22/25 15:12 Patient Disposition: Home, Self-Care Discharge Diagnosis: urinary tract infection Referrals: Rebecca Magaña MD [Primary Care Provider, Medical] - 1 Week Discharge Medications: New cefdinir 250 mg/5 mL suspension for reconstitution 300 mg PO BID Qty: 48 0RF Continued cetirizine 10 mg tablet 10 mg PO DAILY PRN (Reason: sinusitis) oxycodone 5 mg/5 mL solution 10 mg PO TID tamsulosin 0.4 mg capsule 0.4 mg PO DAILY baclofen 10 mg tablet 30 mg PO BID polyethylene glycol 3350 [Gavilax] 17 gram/dose powder 17 g PO DAILY Discontinued azithromycin 250 mg tablet 250 mg PO DAILY 4 Days Qty: 4 0RF Rx Instructions: start on day 2 of therapy amoxicillin-pot clavulanate 875-125 mg tablet 1 tab PO Q12H Qty: 19 0RF Discharge Orders: Discharge Order (Routine); Ordered 02/22/25 Ordered By: Pelon Sotelo Diet: pureed solids Activity on Discharge: As tolerated Stand Alone Forms: Patient Portal Discharge page Print Language: French Care Plan Goals: cure infection Health Concerns: urinary tract infection Plan of Treatment: cefdinir 300 mg [6 mL] twice daily for 4 days Please follow up with your primary care doctor within 1 week. Return to the hospital if you experience recurrent or worsening symptoms. Assessment: See Discharge Summary.
[2025-02-22 16:00] VITALS: BP 136/85; PULSE 100; RESP 18; TEMP 36.4; O2SAT 96
--- NOTE | 2025-02-22 16:33 | MHC.CM.PN ---
PTS MOTHER/HCP, AMEYA, REPORTS PT LIVES AT HOME WITH FAMILY HE HAS A EVENT MARKETING MANAGER THAT COMES IN AND BETWEEN THAT AND FAMILY, PT HAS 24/7 CARE PT IS BED BOUND AND THEY HAVE A HOSPITAL BED AND CEILING LIFT AT HOME PT ALSO HAS A POWER W/C HE CAN NAVIGATE INDEPENDENTLY ONCE IN. TANY[place] REPORTS SHE IS THE PTS LEGAL GUARDIAN, EHR INDICATES IT IS ON FILE PCP: ROBB MAJANO DELIVERED 02/21/25 PT CLEARED TO DC HOME TODAY WITH RESUMPTION OF 24/7 CARE BLS TRANSPORT BOOKED FOR 1700 HOURS WITH [facility]
== END 2025-02-22 17:49 | disposition home or self-care (01) | DRG 690 ==
LOC: HO.ED 02-20 01:15 → HO.EDOVER 02-20 01:15 → HO.S3 02-20 10:11
PROVIDERS: Admitting Provider Nurse Practitioner Family; Emergency Provider Emergency Medicine; PCP Internal Medicine; Visit Provider Family Medicine
DX: N39.0 Urinary tract infection, site not specified (principal); G80.8 Other cerebral palsy; K59.00 Constipation, unspecified; M41.45 Neuromuscular scoliosis, thoracolumbar region; G89.29 Other chronic pain; Z74.01 Bed confinement status; Z20.822 Contact with and (suspected) exposure to COVID-19; Z79.899 Other long term (current) drug therapy
CPT/HCPCS: 36415; 71045; 71275; 74177; 80048; 80076; 81001; 82550; 83605; 83690; 83735; 85025; 86140; 87040; 87086; 87147; 87205; 87637; 92610; 99285; J0456; J0696; J1200; J2405; J3373; J7120; Q9967

== ENCOUNTER → 2025-02-19 18:38 | Outpatient (BNV) | payer MEDICARE, MEDICAID, SELFPAY | PROVIDERS: Emergency Provider Emergency Medicine; PCP Internal Medicine; Visit Provider Student in an Organized Health Care Education/Training Program | DX: J98.4 Other disorders of lung (principal) | CPT/HCPCS: 71045 ==

== ENCOUNTER → 2025-02-20 01:03 | Outpatient (BNV) | payer MEDICARE, MEDICAID, SELFPAY | PROVIDERS: Admitting Provider Nurse Practitioner Family; Emergency Provider Emergency Medicine; PCP Internal Medicine; Visit Provider Family Medicine | DX: N30.00 Acute cystitis without hematuria (principal) | CPT/HCPCS: 99232 ==